=== PATIENT | male | born 1960 | race Caucasian/White ===

== ENCOUNTER 2016-07-06 12:54 | Emergency (ER) | payer MEDICARE, BC, MEDICAID ==
[~2016-07-06] VITALS: Ht 170.2 cm; Wt 54.4 kg
--- OUTSIDE RECORDS SUMMARY | 2016-07-06 13:01 | XMS REPORT | Continuity of Care Document ---
Author Author [facility] Organization [facility] Address Unknown Phone Unavailable Care Team Providers Care Impact Hammer Operator Name Role Phone Unknown, Unknown PCP Unavailable Source Comments Some departments are not documenting in the electronic medical record. If you do not see the information that you expected, contact Release of Information in the Health Information Management department at [phone] for further assistance in locating additional records.[facility] Active Allergies and Adverse Reactions No Known Allergies Current Medications Prescription Sig. Disp. Refills Start End Date Status Date diazepam (VALIUM) 5 mg Take 5 mg by mouth three Active tablet times daily. gabapentin (NEURONTIN) Take 300 mg by mouth Active 300 mg capsule twice daily. oxyCODONE (ROXICODONE) 5 Take 5 mg by mouth every Active mg tablet 4 hours as needed tiZANidine (ZANAFLEX) 4 Take 4 mg by mouth every Active mg tablet 6 hours as needed. naproxen (NAPROSYN) 500 Take 500 mg by mouth Active mg tablet twice daily with meals. trimethoprim-sulfamethoxa Take 1 Tab by mouth Active zole (BACTRIM DS) 160-800 daily. mg tablet Active Problems Problem Noted Date Elevated liver enzymes 06/01/2014 Hepatitis C 06/01/2014 Social History Tobacco Use Types Packs/Day Years Used Date Current Every Day Smoker Cigarettes Tobacco Cessation: Counseling Given: No Comments: 1 pack a cig a day Last Filed Vital Signs Vital Sign Reading Time Taken Blood Pressure 115/80 06/01/2014 10:57 AM TRANSFER STATION OPERATOR Pulse 76 06/01/2014 10:57 AM TRANSFER STATION OPERATOR Temperature 36.3 C (97.4 F) 06/01/2014 10:57 AM TRANSFER STATION OPERATOR Respiratory Rate 16 06/01/2014 10:57 AM TRANSFER STATION OPERATOR Height 1.676 m (5' 6") 06/01/2014 10:57 AM TRANSFER STATION OPERATOR Weight 51.801 kg (114 lb 3.2 oz) 06/01/2014 10:57 AM TRANSFER STATION OPERATOR Body Mass Index 18.44 06/01/2014 10:57 AM TRANSFER STATION OPERATOR Oxygen Saturation 99% 06/01/2014 10:57 AM TRANSFER STATION OPERATOR Plan of Care Health Maintenance Due Date Last Done Comments Physical (Comprehensive) 01/12/1967 Exam Pertussis Vaccine 01/12/1971 Tetanus Vaccine 01/12/1977 Colorectal Cancer 01/12/2010 Screening Influenza Vaccine 02/13/2016 Hepatitis C Screening Completed 06/01/2014 Results from Last 3 Months Not on file
[2016-07-06] MEDS ORDERED: NS 100 ML (IVPB) BAG IV ONE (14:00)
[2016-07-06] MEDS ORDERED: IOHEXOL 350 MG/ML 100 ML (OMNIPAQUE 350) VIAL IV ONE (14:00)
--- NOTE | 2016-07-06 14:29 | ED Abdominal Pain ---
General Chief Complaint: Abdominal/GI Problems Stated Complaint: LOWER ABD PAIN/HERNIA Nursing Triage Note: c/o low abd pain. Visible bilateral inguinal hernias noted but significantly larger on the right. Symptoms have worsened since Wednesday. Sepsis Screen: No Definite Risk Source of Information: Patient Exam Limitations: No Limitations History of Present Illness Time Seen By Provider: 14:27 Initial Comments To ER with bulging to the inguinal area bilaterally for the past 2 days. Slight pain. He is passing gas and having bowel movements without nausea or vomiting. History of a left inguinal hernia repair in [place] several years ago. Timing/Duration: 1-2 Days Severity/Quality: Moderate Radiation: No Radiation Activities at Onset: None Allergies and Home Medications Allergies Coded Allergies: No Allergy Information Available (Unverified , 07/06/16) Review of Systems Constitutional: see HPINo chills EENTM: No Symptoms Reported Respiratory: No Symptoms Reported Cardiovascular: No Symptoms Reported Gastrointestinal: See HPI Abdominal PainDenies Constipated, Denies Diarrhea, Denies Nausea Genitourinary: No Symptoms Reported Musculoskeletal: no symptoms reported Skin: no symptoms reported Psychiatric/Neurological: No Symptoms Reported Endocrine: No Symptoms Reported Hematologic/Lymphatic: No Symptoms Reported Past Szmvquc-Djgtth-Gzldjy Hx Patient Social History Recent Foreign Travel: No Contact w/Someone Who Travel: No Recent Infectious Disease Expo: No Physical Exam Vital Signs VS - Last 72 Hours, by Label 07/06/16 13:42 Temp 97.5 Pulse 70 Resp 16 B/P 134/100 Pulse Ox 98 Capillary Refill : Less Than 3 Seconds General Appearance: WD/WN no apparent distress HEENT: PERRL/EOMI normal ENT inspection Neck: non-tender full range of motion Respiratory: no respiratory distress no accessory muscle use Gastrointestinal: normal bowel sounds soft other (bulging to the bilateral inguinal areas more pronounced when he goes from supine to sitting position. These are not inflamed appearing, easily reducible with simple pressure) Extremities: normal range of motion non-tender Neurologic/Psychiatric: alert normal mood/affect oriented x 3 Skin: normal color warm/dry Progress/Results/Core Measures Results/Orders My Orders Orders-ROBERT SIMMS APRN Iohexol Injection (Omnipaque 350 Mg/Ml 1 (07/06/16 14:00) Ns (Ivpb) (Sodium Chloride 0.9% Ivpb Bag (07/06/16 14:00) Ct Abdomen/Pelvis Wo (07/06/16 13:58) Vital Signs/I&O Vital Sign - Last 12Hours 07/06/16 13:42 Temp 97.5 Pulse 70 Resp 16 B/P 134/100 Pulse Ox 98 Blood Pressure Mean: 111 Departure Impression Impression: Primary Impression: Bilateral inguinal hernia Qualified Code: K40.21 - Bilateral inguinal hernia, without obstruction or gangrene, recurrent Disposition: HOME, SELF-CARE Condition: Stable Departure-Patient Inst. Decision time for Depature: 14:28 Referrals: MAGALI STEVENSON BRETT D DO JENKINS, XAVIER M MD KIDO, TAKAAKI MD NO,LOCAL PHYSICIAN (PCP) Primary Care Physician Patient Instructions: Inguinal and Femoral (Groin) Hernias Add. Discharge Instructions: 1. Return to ER for any vomiting or if you become constipated and stopped passing gas 2. Call a surgeon of your choosing today to make an appointment to be seen as soon as they can get you in preferably within the next 1-3 weeks All discharge instructions reviewed with patient and/or family. Voiced understanding. Work/School Note: Local Medical Staff Listing ROBERT SIMMS APRN Jul 06, 2016 14:29
--- NOTE | 2016-07-06 14:41 | Diagnostic Imaging Report ---
PROCEDURE: CT abdomen and pelvis without contrast. TECHNIQUE: Multiple contiguous axial images were obtained through the abdomen and pelvis without the use of intravenous contrast. INDICATION: Abdominal pain. COMPARISON: There are no prior studies available for comparison. FINDINGS: The images through the low pelvis do show that there are segments of small bowel extending into each inguinal canal. There is no sign of obstruction of the small bowel however. The appendix was not particularly well-visualized but there are no indirect signs of acute appendicitis. There is a considerable amount of fecal material throughout the colon. There may be a few diverticula in the sigmoid colon but there is no evidence for acute diverticulitis. There is no pelvic mass or free fluid collection noted. The urinary bladder and prostate gland are grossly unremarkable. There does appear to be fluid within the scrotum. Most likely this is secondary to a hydrocele. If further evaluation is desired, then scrotal ultrasound would be recommended. The liver, spleen, kidneys, adrenals, gallbladder, aorta and inferior vena cava show no sign of an acute abnormality. The stomach is partially filled with particulate matter and consequently difficult to assess. The images through the lung bases show that there is mild atelectasis/scar formation in the right lower lobe medially. There is no sign of pneumonia or pleural effusion. The bone windows are unremarkable for a fracture or for a destructive lesion. However, there is a grade 1 spondylolisthesis of L5 with respect to S1 as well as narrowing of the disc space at this level. There also appear to be trefoil stenosis at L4-5. IMPRESSION: 1. There are segments of small bowel extending into both inguinal canals. There is no incarceration or obstruction of the bowel however. 2. There is no acute abnormality of the abdomen or pelvis noted otherwise. 3. There is fluid within the scrotum. Most likely, this is due to hydrocele formation. If further imaging is desired, ultrasound would be recommended. 4. There is severe degenerative disc and bony disease in the lower lumbar spine. These results were discussed with Phil Jeff APRN. Dictated by: Dictated on workstation # [id number]
[2016-07-06 14:49] VITALS: BP 138/98
[2016-07-07] MEDS ORDERED: DIAZ5TAB3 (07:13)
[2016-07-07] MEDS ORDERED: NAPR500T3 PO (07:13)
[2016-07-07] MEDS ORDERED: BACL10TA PO (07:13)
[2016-07-07] MEDS ORDERED: GABA-488 (07:13)
[2016-07-07] MEDS ORDERED: HYDR-3812 (07:13)
[2016-07-07] MEDS ORDERED: LEVO750T9 PO (09:21)
[2016-07-07] MEDS ORDERED: OXYC-197 PO (09:21)
[2016-07-07] MEDS ORDERED: ONDA4TAB8 SL (09:21)
== END 2016-07-06 14:49 | disposition home or self-care (01) ==
LOC: EDUNIT# 12:54 → ER 12:58
DX: K40.20 Bilateral inguinal hernia, without obstruction or gangrene, not specified as recurrent (principal)
CPT/HCPCS: 74176

== ENCOUNTER 2016-07-07 06:52 | Emergency (ER) | payer MEDICARE, BC, MEDICAID ==
[~2016-07-07] VITALS: Ht 170.2 cm; Wt 54.4 kg
--- OUTSIDE RECORDS SUMMARY | 2016-07-07 06:58 | XMS REPORT | Continuity of Care Document ---
Author Author [facility] Organization [facility] Address Unknown Phone Unavailable Care Team Providers Care Seat Joiner Chainstitch Name Role Phone Unknown, Unknown PCP Unavailable Source Comments Some departments are not documenting in the electronic medical record. If you do not see the information that you expected, contact Release of Information in the Health Information Management department at [phone] for further assistance in locating additional records.[facility] Active Allergies and Adverse Reactions No [...] Taken Blood Pressure 115/80 06/01/2014 10:57 AM DELIVERY CREW MEMBER Pulse 76 06/01/2014 10:57 AM DELIVERY CREW MEMBER Temperature 36.3 C (97.4 F) 06/01/2014 10:57 AM DELIVERY CREW MEMBER Respiratory Rate 16 06/01/2014 10:57 AM DELIVERY CREW MEMBER Height 1.676 m (5' 6") 06/01/2014 10:57 AM DELIVERY CREW MEMBER Weight 51.801 kg (114 lb 3.2 oz) 06/01/2014 10:57 AM DELIVERY CREW MEMBER Body Mass Index 18.44 06/01/2014 10:57 AM DELIVERY CREW MEMBER Oxygen Saturation 99% 06/01/2014 10:57 AM DELIVERY CREW MEMBER Plan of Care Health Maintenance Due Date Last Done Comments Physical (Comprehensive) 01/12/1967 Exam Pertussis Vaccine 01/12/1971 Tetanus Vaccine 01/12/1977 Colorectal Cancer 01/12/2010 Screening Influenza Vaccine 02/13/2016 Hepatitis C Screening Completed 06/01/2014 Results from Last 3 Months Not on file
[2016-07-07] MEDS ORDERED: NS IV 1000 ML 1,000 ML IV ONE (07:10)
[2016-07-07] MEDS ORDERED: GABA-488 (07:13)
[2016-07-07] MEDS ORDERED: BACL10TA PO (07:13)
[2016-07-07] MEDS ORDERED: NAPR500T3 PO (07:13)
[2016-07-07] MEDS ORDERED: DIAZ5TAB3 (07:13)
[2016-07-07] MEDS ORDERED: fentaNYL INJECTION 100 MCG/2 ML AMP ONE (07:13)
[2016-07-07] MEDS ORDERED: HYDR-3812 (07:13)
[2016-07-07] MEDS ORDERED: FAMOTIDINE 20MG/2ML IV (PEPCID) IVP ONE (07:15)
[2016-07-07] MEDS ORDERED: ONDANSETRON 4 MG/2 ML (SDV) Z0FRAN IVP ONE (07:15)
[2016-07-07 07:24] LABS: BASOPHILS % (AUTO) 0 % (0-10); EOSINOPHILS # (AUTO) 0.2 10^3/uL (0.0-0.3); EOSINOPHILS % (AUTO) 1 % (0-10); LYMPHOCYTES # (AUTO) 1.3 X 10^3 (1.0-4.0); LYMPHOCYTES % (AUTO) 12 % (12-44); MEAN CORPUSCULAR HEMOGLOBIN 29 PG (25-34); MEAN CORPUSCULAR HGB CONC 34 G/DL (32-36); MEAN CORPUSCULAR VOLUME 85 FL (80-99); MEAN PLATELET VOLUME 10.1 FL (7.4-10.4); MONOCYTES # (AUTO) 0.7 X 10^3 (0.0-1.0); MONOCYTES % (AUTO) 6 % (0-12); NEUTROPHILS # (AUTO) 8.7 X 10^3 (1.8-7.8); NEUTROPHILS % (AUTO) 81 % (42-75); PLATELET COUNT 309 10^3/uL (130-400); RED BLOOD COUNT 5.05 10^6/uL (4.35-5.85); RED CELL DISTRIBUTION WIDTH 13.2 % (10.0-14.5); WHITE BLOOD COUNT 10.8 10^3/uL (4.3-11.0)
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
[2016-07-07] MEDS ORDERED: fentaNYL INJECTION 100 MCG/2 ML AMP IVP ONE (07:30)
[2016-07-07 07:44] LABS: ALANINE AMINOTRANSFERASE 30 U/L (0-55); ALBUMIN 3.8 G/DL (3.2-4.5); ANION GAP 9 MMOL/L (5-14); ASPARTATE AMINO TRANSFERASE 25 U/L (5-34); BILIRUBIN,TOTAL 0.3 MG/DL (0.1-1.0); BLOOD UREA NITROGEN 20 MG/DL (7-18); BUN/CREATININE RATIO 28; CALCIUM 8.9 MG/DL (8.5-10.1); CARBON DIOXIDE 26 MMOL/L (21-32); CHLORIDE 105 MMOL/L (98-107); CREATININE SERUM 0.72 MG/DL (0.60-1.30); GFR ESTIMATED > 60; GLUCOSE 86 MG/DL (70-105); LACTATE DEHYDROGENASE 224 U/L (125-220); POTASSIUM 4.2 MMOL/L (3.6-5.0); SODIUM 140 MMOL/L (135-145); TOTAL PROTEIN 6.8 G/DL (6.4-8.2)
--- NOTE | 2016-07-07 09:02 | Diagnostic Imaging Report ---
PA and lateral chest at 845 hours. INDICATION: Vomiting and pneumonia. There are no prior studies available for comparison. FINDINGS: The heart size is within normal limits. There are coarse perihilar markings bilaterally. I suspect that these are chronic in nature. If previous studies are available, they would be helpful for comparison. There is no sign of failure, pneumonia or pleural effusion to suggest an acute abnormality. The mediastinum is not widened. The osseous structures are intact. There has been a prior fusion of the lowermost cervical spine. IMPRESSION: 1. There is chronic pulmonary disease, but there is no acute cardiopulmonary abnormality identified. 2. If previous studies are available, they would be helpful for comparison. Dictated by: Dictated on workstation # [id number]
[2016-07-07] MEDS ORDERED: ONDA4TAB8 SL (09:21)
[2016-07-07] MEDS ORDERED: OXYC-197 PO (09:21)
[2016-07-07] MEDS ORDERED: LEVO750T9 PO (09:21)
[2016-07-07 09:37] VITALS: BP 126/88
== END 2016-07-07 09:37 | disposition home or self-care (01) ==
LOC: EDUNIT# 06:52 → ER 06:54
DX: K40.20 Bilateral inguinal hernia, without obstruction or gangrene, not specified as recurrent (principal); R11.2 Nausea with vomiting, unspecified; R05 Cough; F17.210 Nicotine dependence, cigarettes, uncomplicated; Z79.899 Other long term (current) drug therapy
CPT/HCPCS: 36415; 71020; 80053; 83615; 85025; 96361; 96374; 96375

== ENCOUNTER 2016-07-15 13:05 | Outpatient (CLI) | payer MEDICARE, BC ==
[~2016-07-15] VITALS: Ht 170.2 cm; Wt 51.7 kg
[~2016-07-15 13:05] MED LIST: BACL10TA PO; DIAZ5TAB3; GABA-488; HYDR-3812; LEVO750T9 PO; NAPR500T3 PO; ONDA4TAB8 SL; OXYC-197 PO
--- OUTSIDE RECORDS SUMMARY | 2016-07-15 13:09 | XMS REPORT | Continuity of Care Document ---
Author Author [facility] Organization [facility] Address Unknown Phone Unavailable Care Team Providers Care Casting Machine Operator Helper Name Role Phone Unknown, Unknown PCP Unavailable Source Comments Some departments are not documenting in the electronic medical record. If you do not see the information that you expected, contact Release of Information in the Health Information Management department at [phone] for further assistance in locating additional records.[facility] Active Allergies and Adverse Reactions No [...] Taken Blood Pressure 115/80 06/01/2014 10:57 AM DIET AID Pulse 76 06/01/2014 10:57 AM DIET AID Temperature 36.3 C (97.4 F) 06/01/2014 10:57 AM DIET AID Respiratory Rate 16 06/01/2014 10:57 AM DIET AID Height 1.676 m (5' 6") 06/01/2014 10:57 AM DIET AID Weight 51.801 kg (114 lb 3.2 oz) 06/01/2014 10:57 AM DIET AID Body Mass Index 18.44 06/01/2014 10:57 AM DIET AID Oxygen Saturation 99% 06/01/2014 10:57 AM DIET AID Plan of Care Health Maintenance Due Date Last Done Comments Physical (Comprehensive) 01/12/1967 Exam Pertussis Vaccine 01/12/1971 Tetanus Vaccine 01/12/1977 Colorectal Cancer 01/12/2010 Screening Influenza Vaccine 02/13/2016 Hepatitis C Screening Completed 06/01/2014 Results from Last 3 Months Not on file
[2016-07-15 13:13] VITALS: BP 127/89
[2016-07-15] MEDS ORDERED: TIZA4TAB3 PO (14:00)
[2016-07-15] MEDS ORDERED: OXYC-471 PO (14:00)
[2016-07-20] MEDS ORDERED: OXYC-471 PO (10:52)
== END 2016-07-15 13:35 | disposition home or self-care (01) ==
LOC: PREOP 13:05
PROVIDERS: ATTEND Surgery
DX: Z01.810 Encounter for preprocedural cardiovascular examination (principal); Z11.2 Encounter for screening for other bacterial diseases; K40.20 Bilateral inguinal hernia, without obstruction or gangrene, not specified as recurrent
CPT/HCPCS: 87081; 93005

== ENCOUNTER 2016-07-20 07:20 | Day surgery (SDC) | payer MEDICARE, BC ==
[~2016-07-20] VITALS: Ht 170.2 cm; Wt 51.7 kg
[2016-07-20 07:20] VITALS: BP 109/88
[~2016-07-20 07:20] MED LIST changes: +OXYC-471 PO; +TIZA4TAB3 PO
[2016-07-20] MEDS ORDERED: FAMOTIDINE 20MG/2ML IV (PEPCID) IV ONE (07:45)
[2016-07-20] MEDS: LACTATED RINGERS 1,000 ML IV PRN ×2 (08:08→10:23)
--- OUTSIDE RECORDS SUMMARY | 2016-07-20 08:08 | XMS REPORT | Continuity of Care Document ---
Author Author [facility] Organization [facility] Address Unknown Phone Unavailable Care Team Providers Care Checking Clerk Name Role Phone Unknown, Unknown PCP Unavailable Source Comments Some departments are not documenting in the electronic medical record. If you do not see the information that you expected, contact Release of Information in the Health Information Management department at [phone] for further assistance in locating additional records.[facility] Active Allergies and Adverse Reactions No [...] Taken Blood Pressure 115/80 06/01/2014 10:57 AM HAND BOOKED FOLDER AND STITCHER Pulse 76 06/01/2014 10:57 AM HAND BOOKED FOLDER AND STITCHER Temperature 36.3 C (97.4 F) 06/01/2014 10:57 AM HAND BOOKED FOLDER AND STITCHER Respiratory Rate 16 06/01/2014 10:57 AM HAND BOOKED FOLDER AND STITCHER Height 1.676 m (5' 6") 06/01/2014 10:57 AM HAND BOOKED FOLDER AND STITCHER Weight 51.801 kg (114 lb 3.2 oz) 06/01/2014 10:57 AM HAND BOOKED FOLDER AND STITCHER Body Mass Index 18.44 06/01/2014 10:57 AM HAND BOOKED FOLDER AND STITCHER Oxygen Saturation 99% 06/01/2014 10:57 AM HAND BOOKED FOLDER AND STITCHER Plan of Care Health Maintenance Due Date Last Done Comments Physical (Comprehensive) 01/12/1967 Exam Pertussis Vaccine 01/12/1971 Tetanus Vaccine 01/12/1977 Colorectal Cancer 01/12/2010 Screening Influenza Vaccine 02/13/2016 Hepatitis C Screening Completed 06/01/2014 Results from Last 3 Months Not on file
--- OUTSIDE RECORDS SUMMARY | 2016-07-20 08:08 | XMS REPORT | Continuity of Care Document ---
Author Author [facility] Organization [facility] Address Unknown Phone Unavailable Care Team Providers Care Gang Plank Workman Name Role Phone Unknown, Unknown PCP Unavailable Source Comments Some departments are not documenting in the electronic medical record. If you do not see the information that you expected, contact Release of Information in the Health Information Management department at [phone] for further assistance in locating additional records.[facility] Active Allergies and Adverse Reactions No [...] Taken Blood Pressure 115/80 06/01/2014 10:57 AM ROOM SERVICE SERVER Pulse 76 06/01/2014 10:57 AM ROOM SERVICE SERVER Temperature 36.3 C (97.4 F) 06/01/2014 10:57 AM ROOM SERVICE SERVER Respiratory Rate 16 06/01/2014 10:57 AM ROOM SERVICE SERVER Height 1.676 m (5' 6") 06/01/2014 10:57 AM ROOM SERVICE SERVER Weight 51.801 kg (114 lb 3.2 oz) 06/01/2014 10:57 AM ROOM SERVICE SERVER Body Mass Index 18.44 06/01/2014 10:57 AM ROOM SERVICE SERVER Oxygen Saturation 99% 06/01/2014 10:57 AM ROOM SERVICE SERVER Plan of Care Health Maintenance Due Date Last Done Comments Physical (Comprehensive) 01/12/1967 Exam Pertussis Vaccine 01/12/1971 Tetanus Vaccine 01/12/1977 Colorectal Cancer 01/12/2010 Screening Influenza Vaccine 02/13/2016 Hepatitis C Screening Completed 06/01/2014 Results from Last 3 Months Not on file
[2016-07-20] MEDS ORDERED: LIDOCAINE/EPI 1%-1:100,000 (XYLOCAINE) 20ML ONE ×2 (08:12→10:03)
[2016-07-20] MEDS ORDERED: MIDAZOLAM 2 MG/2 ML (VERSED) VIAL ONE (08:13)
[2016-07-20] MEDS ORDERED: ONDANSETRON 4 MG/2 ML (SDV) Z0FRAN ONE (08:13)
[2016-07-20] MEDS ORDERED: fentaNYL INJECTION 100 MCG/2 ML AMP ONE (08:13)
[2016-07-20] MEDS ORDERED: LACTATED RINGERS 1,000 ML IV ONE ×2 (08:13→11:05)
[2016-07-20] MEDS ORDERED: SEVOFLURANE (ULTANE) 15 ML INHAL SOLN ONE ×4 (08:13→11:05)
[2016-07-20] MEDS ORDERED: proPOfol 200 MG/20 ML (DIPRIVAN) VIAL IV ONE (08:13)
[2016-07-20] MEDS ORDERED: DEXAMETHASONE PF 10 MG/ML (DECADRON) VIAL ONE (08:13)
[2016-07-20] MEDS ORDERED: LIDOCAINE PF 2% 10 ML (XYLOCAINE) AMP ONE (08:13)
[2016-07-20] MEDS ORDERED: GABA-488 PO (08:23)
[2016-07-20] MEDS ORDERED: ceFAZolin 1 GM/NS 50 ML IVPB IV ONE ×2 (08:30)
--- NOTE | 2016-07-20 09:43 | Progress Note-Pre Operative ---
Pre-Operative Progress Note H&P Reviewed The H&P was reviewed, patient examined and no changes noted. Date H&P Reviewed: Jul 20, 2016 Time H&P Reviewed: 09:42 Pre-Operative Diagnosis: B/L inguinal hernia MAGALI STEVENSON DO Jul 20, 2016 09:43
--- NOTE | 2016-07-20 10:51 | Progress Note-Post Operative ---
Post-Operative Progess Note Outdoor Advertising Leasing Agent Robert Pre-Operative Diagnosis B/L inguinal hernia Post-Operative Diagnosis Right Inguinal hernia -Direct Left inguinal hernia - direct , recurrent Post-Op Procedure Note Date of Procedure: Jul 20, 2016 Name of Procedure: B/L IH with mesh placement Anesthesia Type GET Estimated blood loss (mL): scant Specimen(s) collected None MAGALI STEVENSON DO Jul 20, 2016 10:51
[2016-07-20] MEDS ORDERED: OXYC-471 PO (10:52)
--- NOTE | 2016-07-20 10:55 | Discharge Inst-Surgical ---
Discharge Inst-Surgical Depart Medication/Instructions New, Converted or Re-Newed RX: RX Given to Pt/Family Patient Instructions Follow up Appt: Make appointment for 1 week. Call [phone] Instructions: No lifting greater than 10 pounds. No strenuous activity. May shower in 24 hours, no tub bath or soaking. Use incentive spirometer at home as directed. No Smoking Skin/Wound Care: May remove band-aid in am, glue should fall off in 7-10 days Symptoms to Report: Appetite Changes, Extremity Discoloration, Numbness/Tingling, Swelling Increased , Bleeding Excessive, Eyesight Changes, Pain Increased, Urine Color Change, Constipation(Persistent), Fever over 101 degree F, Pain/Pressure in chest, Urinating Difficulty, Cough Up/Vomit Blood, Heart Beat Irreg/Pounding, Pain/ Pressure in jaw, Vaginal Bleeding Increase, Cramps in feet or legs, Lightheadedness, Pain/Pressure in shoulder, Diarrhea(Persistent), Memory Changes Suddenly, Questions/Concerns, Weight gain consecutive days, Dizziness/ Fainting, Nausea/Vomiting, Shortness of Breath, Weight gain over 2 pounds If questions or concerns contact your physician Or seek help at emergency department. Activity Activity as Tolerated: Yes Driving Instructions: No Driving/Refer to Dr. Jennings Discharge Diet: No Restrictions Diet After 24 Hours: Clear Liquid if Nauseous, Resume Home Diet If Any Problems/Questions/Issu: Contact Your Physician, Go to Emergency Room Skin/Wound Care Infection Signs and Symptoms: Increased Redness, Increased Drainage, Increased Swelling Bathing Instructions: Shower Stitches/[place]/Dermabond Dis: Dermabond Ice Pack: Ice On and Off Site MAGALI STEVENSON DO Jul 20, 2016 10:55
[2016-07-20] MEDS ORDERED: morphine INJ 10 MG/ML 1ML (SYR OR VIAL) IVP PRN (11:15)
[2016-07-20] MEDS ORDERED: HYDROmorphone (DILAUDID) 2 MG/ML VIAL IVP PRN (11:15)
[2016-07-20] MEDS ORDERED: MEPERIDINE (DEMEROL) INJ 50 MG/ML IVP PRN (11:15)
[2016-07-20] MEDS ORDERED: ONDANSETRON 4 MG/2 ML (SDV) Z0FRAN IVP PRN (11:15)
[2016-07-20 11:50] VITALS: BP 107/92
[2016-07-20] MEDS ORDERED: oxyCODONE/APAP 5/325MG (PERCOCET 5) TABLET PO PRN (12:15)
[2016-07-20 12:20] VITALS: BP 126/82
[2016-07-20 12:50] VITALS: BP 129/91
[2016-07-20 13:15] VITALS: BP 129/91
--- NOTE | 2016-07-21 12:38 | OPERATIVE REPORT ---
PROCEDURE PHYSICIAN: MAGALI STEVENSON DATE OF PROCEDURE: 07/20/2016 PREOPERATIVE DIAGNOSIS: Bilateral inguinal hernia. POSTOPERATIVE DIAGNOSIS: 1. Right direct inguinal hernia. 2. Left recurrent direct inguinal hernia. PROCEDURE: Bilateral inguinal herniorrhaphy with mesh placement. SURGEON: Dr. Stevenson FIBREGLASS LAY UP WORKER: Dr. Jones. ANESTHESIA: General endotracheal tube by Dr. Santoyo with approximately 50 mL of local injected by myself. SPECIMEN: None BLOOD LOSS: Scant. FLUIDS: Per anesthesia. POSTOPERATIVE CONDITION: Stable. INDICATION FOR THE PROCEDURE: The patient is a 56-year-old male who came in complaining of bulging and pain bilateral inguinal region. He was diagnosed with bilateral inguinal hernia. FINDINGS: The patient had a large direct right inguinal hernia and then he large actually left large recurrent direct inguinal hernia. PROCEDURE NOTE: After informed consent was obtained patient brought to the operating room, placed on the table in supine position. He was sterilely prepped and draped in the normal fashion. Local lidocaine was then used to perform an iliac-inguinal nerve block bilaterally as well as pubic tubercle block and infiltrated the right and left inguinal region with local; then started on the right side. Made an incision with number 15 blade, carried down through skin and subcutaneous tissue then deepened down to the subcutaneous with [place] electrocautery down to the fascia at the external oblique, infiltrated the fascia with local and incised the external oblique with Bovie electrocautery. Then able to grasp two sides of the hemostats and dissect under that, actually fascia bluntly. Then able to grasp the cord and cord structures with a [place] to get under them at the pubic tubercle, placed a [place] drain pulled this out inferolateral direction. Then started carefully freeing up the cord and cord structures. There was a large direct hernia sac attached to the cord. Able to carefully peel this off and then pushed this down and closed the floor of the inguinal canal with a 2-0 Vicryl, 2 [id number] sutures were used to close the canal. Then I elected to place a right-sided Parietex mesh, in the inguinal canal, sutured once at the pubic tubercle and then placed the rest of the mesh up under the external oblique fascia encircling the cord with the precut hole there creating an internal inguinal ring. Copiously irrigated with normal saline, suctioned this out and then elected to close the external oblique fascia with 3-0 Vicryl running suture thereby recreating the external inguinal ring. Closed Radha's fascia with 3-0 Vicryl interrupted sutures and then Dr. Jones closed the skin with 4-0 undyed Monocryl. I went to the other side and started the incision on the left side. Made an incision with a number 15 blade, carried down through the skin into the subcutaneous tissue. Had already infiltrated this area with local. Then deepened down through the subcutaneous tissue with the Bovie electrocautery down to the fascia. He had had a previous left inguinal hernia, so this area was very hard and stuck down. Able to get down to the external oblique fascia then infiltrated with local and then incised through the external inguinal ring with Bovie electrocautery and then grasped the sides and then started carefully dissecting out the cord and cord structures. Was able to grab the cord and cord structures with a Abdirahman and then get under them at the pubic tubercle and then found mesh, old mesh, was actually stuck on the medial aspect of the external oblique fascia. Was able to carefully dissect this off the fascia and then noted he had another large direct inguinal hernia. Elected to close the floor of the inguinal canal with 2-0 Vicryl, 2 interrupted [id number] suture used to close the floor of the inguinal canal. Then instead of trying to remove the mesh elected to tack this back down into the correct position tacking to the pubic tubercle right at the point of the pubic tubercle and then to the sides with 2-0 Vicryl; along the shelving portion of Poupart's ligament laterally with 2-0 Vicryl as well as going medially along the aponeurosis of the transverse abdominis to tack this mesh down. It laid out nicely and it was in good position. At this point then closed the external oblique fascia with 3-0 Vicryl running sutures thereby recreating the external inguinal ring. There was no indirect defect and the mesh was in good position around the cord and cord structures. Then closed the Radha's fascia with 3-0 Vicryl; 2 interrupted stitches. Then closed the skin with 4-0 undyed Monocryl in a running subcuticular fashion. The areas were cleaned and dried, glue was used on both side and then Band-Aids placed. The patient tolerated the procedure and transferred to recovery room in stable condition. Sponge and needle count correct the end of the case. Dr. Jones dental hygiene administrative assistant in this case and needed his help for retraction, identification of anatomy and he helped close. Job ID: [id number] Dictated Date: 07/20/2016 11:18:08 Web User Experience Strategist Date: 07/21/2016 12:03:04 / maikol HURD
== END 2016-07-20 13:15 | disposition home or self-care (01) ==
LOC: SDC 07:20
PROVIDERS: ATTEND Surgery
DX: K40.91 Unilateral inguinal hernia, without obstruction or gangrene, recurrent (principal); K40.90 Unilateral inguinal hernia, without obstruction or gangrene, not specified as recurrent

== ENCOUNTER 2018-08-11 14:59 | Emergency (ER) | payer MEDICARE, BC ==
[~2018-08-11] VITALS: Ht 165.1 cm; Wt 59.0 kg
[~2018-08-11 14:59] MED LIST changes: +ACHD5005; +GABA-488 PO; -HYDR-3812; +NAPR-915 PO; -NAPR500T3 PO; -OXYC-197 PO; +OXYC1TAB87 PO
--- NOTE | 2018-08-11 15:32 | ED EENT ---
History of Present Illness General Stated Complaint: RT EAR PAIN History of Present Illness Date Seen by Provider: Aug 11, 2018 Time Seen by Provider: 15:25 Initial Comments 58-year-old white male who presents with right ear pressure for 3 days. He is having trouble hearing out of that ear as well. He is notes some tendency to talk louder because of this. He tried earwax candle twice without any improvement. He would like his evaluation treatment limited to this problem today. Allergies and Home Medications Allergies Coded Allergies: No Known Drug Allergies (Unverified , 07/15/16) Home Medications Baclofen 10 Mg Tablet, 10 MG PO TID PRN for MUSCLE SPASMS, (Reported) Gabapentin 300 Mg Capsule, 300 MG PO BID Prescribed by: RENUKA THRASHER on 07/20/16 0823 Naproxen 500 Mg Tablet, 500 MG PO BID WITH MEALS, (Reported) Oxycodone HCl/Acetaminophen 1 Each Tablet, 1 EACH PO Q6H PRN for PAIN Prescribed by: MAGALI STEVENSON on 07/20/16 1052 Tizanidine HCl 4 Mg Tablet, 4 MG PO TID PRN for MUSCLE CRAMPS, (Reported) Patient Home Medication List Home Medication List Reviewed: Yes Review of Systems Review of Systems Constitutional: no symptoms reported Eyes: No Symptoms Reported Ears: See HPI Nose: no symptoms reported Mouth: no symptoms reported Throat: no symptoms reported Respiratory: no symptoms reported Cardiovascular: no symptoms reported Gastrointestinal: no symptoms reported Musculoskeletal: no symptoms reported (acutely) Skin: no symptoms reported Neurological: No Symptoms Reported Hematologic/Lymphatic: No Symptoms Reported Immunological/Allergic: no symptoms reported Past Bdzepwm-Wdhtoc-Qnizik Hx Past Med/Social Hx: Reviewed Nursing Past Med/Soc Hx Patient Social History Type Used: Cigarettes Recent Foreign Travel: No Contact w/Someone Who Travel: No Recent Hopitalizations: No Seasonal Allergies Seasonal Allergies: No Past Medical History Irregular Heartbeat Reproductive Disorders: No Gastroesophageal Reflux, Hiatal Hernia Arthritis, Back Injury, Chronic Back Pain Physical Exam Height, Weight, BMI Height: 5'7.00" Weight: 114lbs. 0.0oz. 51.098040ad; 17.9 BMI Method:Stated General Appearance: WD/WN, no apparent distress, thin Eyes: bilateral eye normal inspection, bilateral eye PERRL, bilateral eye EOMI Ears: right ear other (canal occluded with cerumen packed against TM) Nose: normal inspection Mouth/Throat: normal mouth inspection, other (multiple missing teeth) Neck: non-tender, full range of motion, supple, normal inspection Cardiovascular: regular rate, rhythm Respiratory: chest non-tender, decreased breath sounds Gastrointestinal: normal bowel sounds, non tender Neurologic/Psychiatric: alert, normal mood/affect, oriented x 3 Skin: normal color, warm/dry Procedures/Interventions Ear : Ear Location: Right Foreign Body Removal: Impacted Cerumen Use of: Ear Curette, Irrigation Progress/Conclusion Large volumes of warm water with directed irrigation were unsuccessful in completely removing the lesion. The ear curet was utilized however the impaction was located very close to his TM. The impaction was partially removed but a substantial amount remained firmly impacted. We discussed use of outpatient ear wax softeners and the need for outpatient follow-up. Patient understands and agrees with plan. Departure Impression Primary Impression: Cerumen impaction Qualified Codes: H61.21 - Impacted cerumen, right ear Disposition: 01 HOME, SELF-CARE Condition: Improved Departure-Patient Inst. Decision time for Depature: 16:21 Referrals: CJ GERMAIN MD (PCP) Primary Care Physician in 3-4 days, sooner as needed. Patient Instructions: Ear Wax Impaction (DC) Add. Discharge Instructions: Use Debrox or a generic version twice a day until you see your doctor and he may be able to remove the wax if the home irrigation doesn't get it all out. CURTIS LINN MD Aug 11, 2018 15:32
[2018-08-11 16:32] VITALS: BP 132/71
== END 2018-08-11 16:35 | disposition home or self-care (01) ==
LOC: EDUNIT# 14:59 → ER FS 15:02
DX: H61.21 Impacted cerumen, right ear (principal); K21.9 Gastro-esophageal reflux disease without esophagitis; Z87.19 Personal history of other diseases of the digestive system
CPT/HCPCS: 69210

== ENCOUNTER 2018-08-16 09:47 | Emergency (ER) | payer MEDICARE, BC ==
[~2018-08-16] VITALS: Ht 167.6 cm; Wt 63.5 kg
--- OUTSIDE RECORDS SUMMARY | 2018-08-16 09:53 | XMS REPORT | Clinical Summary ---
Author Author [facility] Organization [facility] Address Unknown Phone Unavailable Care Team Providers Care It Infrastructure Consultant Name Role Phone Peter Foote MD Unavailable Unknown, Unknown PCP Unavailable Source Comments Some departments are not documenting in the electronic medical record. If you do not see the information that you expected, contact Release of Information in the Health Information Management department at [phone] for further assistance in locating additional records.[facility] Allergies No Known Allergies Medications End Date Status Medication Sig Dispensed Refills Start Date Active oxyCODONE (ROXICODONE, Take 1 tablet 90 tablet 0 OXY-IR) 5 mg tablet by mouth 8 every 8 hours as needed for Pain Active oxyCODONE (ROXICODONE, Take one 30 tablet 0 OXY-IR) 5 mg tablet tablet by 8 mouth daily as needed Active oxyCODONE (ROXICODONE, Take one 30 tablet 0 OXY-IR) 5 mg tablet tablet by 9 mouth daily as needed for Pain Earliest Fill Date: 09/29/18 Active gabapentin (NEURONTIN) TAKE 2 540 tablet 1 600 mg tablet TABLETS BY 9 MOUTH EVERY 8 HOURS Active baclofen (LIORESAL) 10 mg TAKE 1 TABLET 180 tablet 0 tablet BY MOUTH 9 TWICE DAILY Active diazePAM (VALIUM) 5 mg Take one 60 tablet 2 tablet tablet by 9 mouth twice daily as needed for Anxiety. 08/26/2018 Active traMADol (ULTRAM) 50 mg Take one 30 tablet 1 tablet tablet by 9 mouth twice daily as needed for Pain for up to 30 days. 07/27/2018 Discontinued gabapentin (NEURONTIN) Take 2 180 capsule 3 600 mg tablet tablets by 8 mouth every 8 hours. 07/27/2018 Discontinued tiZANidine (ZANAFLEX) 4 Take 1 tablet 60 tablet 4 mg tablet by mouth 8 twice daily. 07/27/2018 Discontinued baclofen (LIORESAL) 10 mg TAKE 1 TABLET 60 tablet 2 tablet BY MOUTH 8 TWICE DAILY 07/26/2018 Discontinued oxyCODONE (ROXICODONE, Take one 30 tablet 0 OXY-IR) 5 mg tablet tablet by 9 mouth daily as needed for Pain Earliest Fill Date: 06/30/18 07/27/2018 Discontinued diazePAM (VALIUM) 5 mg Take one 60 tablet 2 tablet tablet by 8 mouth twice daily as needed for Anxiety. 07/27/2018 Discontinued traMADol (ULTRAM) 50 mg Take one 30 tablet 0 tablet tablet by 9 mouth twice daily as needed for Pain. Active Problems Problem Noted Date Elevated liver enzymes 06/01/2014 Hepatitis C 06/01/2014 Encounters Care Team Description Date Type Specialty Eloy Hayes MD 07/27/2018 Refill Anesthesia Pain Eloy Hayes MD Myalgia, other site (Primary Dx); Degeneration of cervical intervertebral disc; Cervical radicular pain; Chronic pain of right knee 07/26/2018 Office Visit Anesthesia Pain Antolin Ortiz MD 07/07/2018 Documentation Sports Medicine Antolin Ortiz MD Bilateral foot-drop (Primary Dx) 07/07/2018 Orders Only Sports Medicine Eloy Hayes MD Myalgia, other site (Primary Dx) 07/06/2018 Office Visit Anesthesia Pain Eloy Hayes MD Pain 06/28/2018 Telephone Anesthesia Pain Antolin Ortiz MD Chondromalacia patellae of right knee (Primary Dx); Right knee pain, unspecified chronicity 06/27/2018 Office Visit Sports Medicine Eloy Hayes MD Fall 06/08/2018 Telephone Anesthesia Pain Eloy Hayes MD 05/31/2018 Hospital Radiology Encounter Eloy Hayes MD Degeneration of cervical intervertebral disc (Primary Dx); Cervical radicular pain; Lumbar radicular pain 05/31/2018 Office Visit Anesthesia Pain from Last 3 Months Social History Date Tobacco Use Types Packs/Day Years Used Former Smoker Cigarettes 0.5 Smokeless Tobacco: Never Used Tobacco Cessation: Counseling Given: No Comments: 1 pack a cig over two days Alcohol Use Drinks/Week oz/Week Comments No Sex Assigned at Date Recorded Not on file Industry Job Start Date Occupation Not on file Not on file Not on file Travel End Travel History Travel Start No recent travel history available. Last Filed Vital Signs Time Taken Vital Sign Reading 07/26/2018 12:09 PM SOLUTION DESIGN ENGINEER Blood Pressure 121/76 07/26/2018 12:09 PM SOLUTION DESIGN ENGINEER Pulse 76 12/21/2017 2:29 PM CDT Temperature 36.7 C (98 F) 06/27/2018 9:23 AM SOLUTION DESIGN ENGINEER Respiratory Rate 15 06/27/2018 9:23 AM SOLUTION DESIGN ENGINEER Oxygen Saturation 98% - Inhaled Oxygen - Concentration 07/26/2018 12:09 PM SOLUTION DESIGN ENGINEER Weight 61.2 kg (135 lb) 07/26/2018 12:09 PM SOLUTION DESIGN ENGINEER Height 167.6 cm (5' 6") 07/26/2018 12:09 PM SOLUTION DESIGN ENGINEER Body Mass Index 21.79 Plan of Treatment Health Maintenance Due Date Last Done Comments PHYSICAL (COMPREHENSIVE) 01/12/1967 EXAM HIV SCREENING 01/12/1975 DTAP/TDAP VACCINES (1 - 01/12/1978 Tdap) COLORECTAL CANCER 01/12/2010 SCREENING SHINGLES RECOMBINANT 01/12/2010 VACCINE (1 of 2) INFLUENZA VACCINE 01/12/2019 HEPATITIS C SCREENING Completed 06/01/2014 Procedures Comments Procedure Name Priority Date/Time Associated Diagnosis PA INJECTION SINGLE/FLOATING DERRICK OPERATOR Routine 07/06/2018 Myalgia, other site TRIGGER POINT 3/> MUSCLES 8:30 AM SOLUTION DESIGN ENGINEER PA ARTHROCENTESIS Routine 06/27/2018 Chondromalacia patellae ASPIR&/INJ MAJOR JT/BURSA 9:30 AM SOLUTION DESIGN ENGINEER of right knee W/O US KNEE 3 VIEWS RIGHT Routine 05/31/2018 Degeneration of cervical 3:45 PM SOLUTION DESIGN ENGINEER intervertebral disc Cervical radicular pain Lumbar radicular pain from Last 3 Months Results * Trigger Point (07/06/2018 8:30 AM SOLUTION DESIGN ENGINEER) Narrative Performed At Eloy Hayes MD 07/06/20189:59 AM OTHER OUTSIDE LAB Trigger Point Locations: R cervical/thoracic/lumbar paraspinal, R lumbar and R sacral Consent: Consent obtained: verbal and written Consent given by: patient Alternatives discussed: alternative treatment [employer] Protocol: Relevant documents: relevant documents present and verified Test results: test results available and properly labeled Imaging studies: imaging studies available Required items: required blood products, implants, devices, and special equipment available Site marked: the operative site was marked Patient identity confirmed: Patient identify confirmed verbally with patient. Time out: Immediately prior to procedure a "time out" was called to verify the correct patient, procedure, equipment, clinical support nurse and site/side marked as required Procedures Details: Prep: alcohol Needle size: 27 G Number of muscles: 3 or more Approach: posterior Medications administered: 2 mL bupivacaine PF 0.25 %; 40 mg triamcinolone acetonide 40 mg/mL Patient tolerance: Patient tolerated the procedure well with no immediate complications. Pressure was applied, and hemostasis was accomplished. Performing Organization Address City/State/Bringrs Phone Number OTHER OUTSIDE LAB * Large Joint Drain/Inject (06/27/2018 9:30 AM SOLUTION DESIGN ENGINEER) Narrative Performed At Antolin Ortiz MD 06/27/20184:54 PM OTHER OUTSIDE LAB Large Joint Drain/Inject Location: knee R knee Consent: Consent obtained: verbal Consent given by: patient Risks discussed: infection, nerve damage, pain, skin discoloration and soft tissue reaction Alternatives discussed: alternative treatment Discussed with patient the purpose of the treatment/procedure, other ways of treating my condition, including no treatment/ procedure and the risks and benefits of the alternatives. Patient has decided to proceed with treatment/procedure. [employer] Protocol: Relevant documents: relevant documents present and verified Test results: test results available and properly labeled Imaging studies: imaging studies available Required items: required blood products, implants, devices, and special equipment available Site marked: the operative site was marked Patient identity confirmed: Patient identify confirmed verbally with patient. Time out: Immediately prior to procedure a "time out" was called to verify the correct patient, procedure, equipment, clinical support nurse and site/side marked as required Procedures Details: Indications: pain Prep: povidone-iodine Local anesthetic: ethyl chloride spray Needle size: 22 G Approach: lateral and superior Medications administered: 4 mL ropivacaine (PF) 0.5% (5 mg/mL); 40 mg triamcinolone acetonide 40 mg/mL Patient tolerance: Patient tolerated the procedure well with no immediate complications. Pressure was applied, and hemostasis was accomplished. Performing Organization Address City/State/[place] Phone Number OTHER OUTSIDE LAB * KNEE 3 VIEWS RIGHT (05/31/2018 3:45 PM SOLUTION DESIGN ENGINEER) Impressions Performed At Findings/Impression: [facility] RESULTS 1.Right knee: Transverse oriented screw fixation within the proximal tibial epiphysis. Staple fixation along the medial aspect of the proximal tibia. There is some chondrocalcinosis primarily the lateral joint compartment. Likely intra-articular ossicle within the lateral knee joint space and possible 2 tiny intra-articular ossicles within the medial portion of the lateral joint compartment. There is an ossicle overlying the intercondylar eminence. 2 osteophytes or ossicles adjacent to the proximal tip of the fibular head. Mild irregular roughening of the lateral tibial plateau. Estimated mild osteoarthritis of the lateral joint compartment. Small sessile bony protuberance medial aspect of the fibular neck and medial aspect junction proximal one third of the tibia partially clipped incompletely evaluated. This may reflect sequela to previous old trauma. Medial joint space and patellofemoral articulation unremarkable. No joint effusion. 2.Left knee 2 views: Normal 2 views left knee. Normal alignment. Joint spaces maintained. Finalized by Vern Chacon M.D. on 05/31/2018 4:16 PM. Dictated by Vern Chacon M.D. on 05/31/2018 4:11 PM. Narrative Performed At KNEE 3 VIEWS RIGHT [facility] RESULTS Clinical Indication: pain.Right knee pain Comparison: None Procedure Note Interface, Radiant Results - 05/31/2018 4:19 PM SOLUTION DESIGN ENGINEER KNEE 3 VIEWS RIGHT Clinical Indication: pain.Right knee pain Comparison: None IMPRESSION Findings/Impression: 1. Right knee: Transverse oriented screw fixation within the proximal tibial epiphysis. Staple fixation along the medial aspect of the proximal tibia. There is some chondrocalcinosis primarily the lateral joint compartment. Likely intra- articular ossicle within the lateral knee joint space and possible 2 tiny intra- articular ossicles within the medial portion of the lateral joint compartment. There is an ossicle overlying the intercondylar eminence. 2 osteophytes or ossicles adjacent to the proximal tip of the fibular head. Mild irregular roughening of the lateral tibial plateau. Estimated mild osteoarthritis of the lateral joint compartment. Small sessile bony protuberance medial aspect of the fibular neck and medial aspect junction proximal one third of the tibia partially clipped incompletely evaluated. This may reflect sequela to previous old trauma. Medial joint space and patellofemoral articulation unremarkable. No joint effusion. 2. Left knee 2 views: Normal 2 views left knee. Normal alignment. Joint spaces maintained. Finalized by Vern Chacon M.D. on 05/31/2018 4:16 PM. Dictated by Vern Chacon M.D. on 05/31/2018 4:11 PM. Performing Organization Address City/State/Zipcode Phone Number [facility] RESULTS from Last 3 Months Insurance Payer Benefit Subscriber ID Type Phone Address Plan / Group MEDICARE MEDICARE xxxxxxxxxx Medicare PART A AND B BCBS [place] BCBS xxxxxxxxxxxx Medicare SUPPLEMENT Advance Directives Patient has advance care planning documents on file. For more information, please contact: [facility] [address] [place] [address]
--- OUTSIDE RECORDS SUMMARY | 2018-08-16 09:53 | XMS REPORT | Encounter Summary ---
Author Author [facility] Organization [facility] Address Unknown Phone Unavailable Care Team Providers Care Cotton Tipper Name Role Phone Peter Foote MD Unavailable Unknown, Unknown PCP Unavailable Reason for Visit * Reason Comments Medication Refill Encounter Details Care Team Description Date Type Department Eloy Hayes MD [address] [place], [place] [id number] 07/27/2018 Refill [facility] [address] [facility] [address] [place] [address] Social History Date Tobacco Use Types Packs/Day Years Used Former Smoker Cigarettes 0.5 Smokeless Tobacco: Never Used Comments: 1 pack a cig over two days Alcohol Use Drinks/Week oz/Week Comments No Sex Assigned at Date Recorded Not on file Industry Job Start Date Occupation Not on file Not on file Not on file Travel End Travel History Travel Start No recent travel history available. as of this encounter Functional Status Date of Assessment Functional Status Response 07/26/2018 Does the patient have a hearing impairment: No 07/26/2018 Does the patient have a visual impairment: Yes 07/06/2018 Does the patient have impaired ambulation: Yes 07/26/2018 Does the patient have an activity of daily living No (ADL) impairment: 07/26/2018 Does the patient have an instrumental activity of No daily living (IADL) impairment: Date of Assessment Cognitive Status Response 07/26/2018 Does the patient have a cognitive impairment: No as of this encounter Miscellaneous Notes * Addendum Note - Zari Cuello RN - 07/27/2018 4:29 PM VEHICLE MAINTENANCE TECHNICIAN Addended by: ZARI CUELLO on: 07/27/2018 04:29 PM Modules accepted: Orders CLE MAINTENANCE TECHNICIAN * Telephone Encounter - Zari Cuello RN - 07/27/2018 4:23 PM VEHICLE MAINTENANCE TECHNICIAN Pt called asking for refills of Gabapentin / Valium and baclofen. [facility] [place] called. No history of gabapentin dispense. Review of [facility] reveals pt fills Valium/tramadol/oxycodone/baclofen at [facility] in [place]. Unable to verify gabapentin dosage, unable to reach pt to verify, will try again tomorrow. CLE MAINTENANCE TECHNICIAN in this encounter Plan of Treatment Not on fileas of this encounter Visit Diagnoses Not on filein this encounter
--- OUTSIDE RECORDS SUMMARY | 2018-08-16 09:53 | XMS REPORT | Encounter Summary ---
Author Author [facility] Organization [facility] Address Unknown Phone Unavailable Care Team Providers Care Pattern Keeper Name Role Phone Peter Foote MD Unavailable Unknown, Unknown Md PCP Unavailable Reason for Referral * Pain Authorization (Routine) Referred By Contact Referred To Contact Status Reason Specialty Diagnoses / Procedures Eloy Hayes MD [address] [facility] [place] [address] New Request Diagnoses Myalgia, other site Degeneration of cervical intervertebral disc Cervical radicular pain Chronic pain of right knee P rocedures [facility] TRIGGER POINT INJECTION Reason for Visit * Reason Comments Follow Up 2 month follow up Pain Pain Encounter Details Care Team Description Date Type Department Eloy Hayes MD [address] [place], [place] [id number] Myalgia, other site (Primary Dx); Degeneration of cervical intervertebral disc; Cervical radicular pain; Chronic pain of right knee 07/26/2018 Office Visit [facility] [address] [facility] [address] [place] [address] Social History Date Tobacco Use Types Packs/Day [...] travel history available. as of this encounter Last Filed Vital Signs Time Taken Vital Sign Reading 07/26/2018 12:09 PM STRATEGY EXECUTION CONSULTANT Blood Pressure 121/76 07/26/2018 12:09 PM STRATEGY EXECUTION CONSULTANT Pulse 76 - Temperature - - Respiratory Rate - - Oxygen Saturation - - Inhaled Oxygen - Concentration 07/26/2018 12:09 PM STRATEGY EXECUTION CONSULTANT Weight 61.2 kg (135 lb) 07/26/2018 12:09 PM STRATEGY EXECUTION CONSULTANT Height 167.6 cm (5' 6") 07/26/2018 12:09 PM STRATEGY EXECUTION CONSULTANT Body Mass Index 21.79 in this encounter Functional Status Date of Assessment [...] cognitive impairment: No as of this encounter Progress Notes * Eloy Hayes MD - 07/26/2018 12:45 PM STRATEGY EXECUTION CONSULTANT SP[facility] CENTER CLINIC NOTE SUBJECTIVE: Mr. Marcus presents in follow up. Trigger point injections reduced pain in the neck by about 50%. He was evaluated by Dr. Ortiz for right knee pain and no surgery is planned at this time. Oxycodone 5 mg is taking the edge off of the pain. He feels that progress is being made in physical therapy. Review of Systems Constitutional: Negative. HENT: Negative. Eyes: Negative. Respiratory: Negative. Cardiovascular: Negative. Gastrointestinal: Negative. Endocrine: Negative. Genitourinary: Negative. Musculoskeletal: Negative. Skin: Negative. Allergic/Immunologic: Negative. Neurological: Negative. Hematological: Negative. Psychiatric/Behavioral: Negative. All other systems reviewed and are negative. Current Outpatient Medications: baclofen (LIORESAL) 10 mg tablet, TAKE 1 TABLET BY MOUTH TWICE DAILY, Disp : 60 tablet, Rfl: 2 diazePAM (VALIUM) 5 mg tablet, Take one tablet by mouth twice daily as needed for Anxiety., Disp: 60 tablet, Rfl: 2 gabapentin (NEURONTIN) 600 mg tablet, Take 2 tablets by mouth every 8 hours., Disp: 180 capsule, Rfl: 3 [START ON 09/29/2018] oxyCODONE (ROXICODONE, OXY-IR) 5 mg tablet, Take one tablet by mouth daily as needed for Pain Earliest Fill Date: 09/29/18, Disp: 30 tablet, Rfl: 0 oxyCODONE (ROXICODONE, OXY-IR) 5 mg tablet, Take one tablet by mouth daily as needed, Disp: 30 tablet, Rfl: 0 oxyCODONE (ROXICODONE, OXY-IR) 5 mg tablet, Take 1 tablet by mouth every 8 hours as needed for Pain, Disp: 90 tablet, Rfl: 0 tiZANidine (ZANAFLEX) 4 mg tablet, Take 1 tablet by mouth twice daily., Disp: 60 tablet, Rfl: 4 traMADol (ULTRAM) 50 mg tablet, Take one tablet by mouth twice daily as needed for Pain., Disp: 30 tablet, Rfl: 0 No Known Allergies Physical Exam Vitals: 07/26/18 1209 BP: 121/76 Pulse: 76 Weight: 61.2 kg (135 lb) Height: 167.6 cm (66") Pain Score: Five Body mass index is 21.79 kg/m. General: Alert and oriented, very pleasant male. HEENT showed extraocular muscles were intact and no other abnormalities. Unlabored breathing. Regular rate and rhythm on CV exam. 5/5 strength in bilateral upper and lower extremities. Sensation is intact to light touch and equal in the upper and lower extremities. Bilateral posterior cervical tenderness with trigger points palpable IMPRESSION: 1. Myalgia, other site 2. Degeneration of cervical intervertebral disc 3. Cervical radicular pain 4. Chronic pain of right knee PLAN: Will refill oxycodone as described above and schedule a 3 month follow up in clinic for possible repeat trigger point injections. TEGY EXECUTION CONSULTANT in this encounter Plan of Treatment Order Schedule Name Priority Associated Diagnoses Expected: 07/26/2018, Expires: 10/23/2018 [facility] SP[facility] TRIGGER POINT INJECTION Routine Myalgia, other site Degeneration of cervical intervertebral disc Cervical radicular pain Chronic pain of right knee as of this encounter Visit Diagnoses Diagnosis Myalgia, other site - Primary Degeneration of cervical intervertebral disc Cervical radicular pain Brachial neuritis or radiculitis nos Chronic pain of right knee in this encounter
--- OUTSIDE RECORDS SUMMARY | 2018-08-16 09:54 | XMS REPORT | Encounter Summary ---
Author Author [facility] Organization [facility] Address Unknown Phone Unavailable Care Team Providers Care Receiving Lead Name Role Phone Peter Foote MD Unavailable Unknown, Unknown PCP Unavailable Encounter Details Care Team Description Date Type Department Antolin Ortiz MD [address] [place] [address] [phone] Bilateral foot-drop (Primary Dx) 07/07/2018 Orders Only [facility] [address] [address] [place] [address] Social History Date Tobacco Use Types Packs/Day [...] Status Date of Assessment Functional Status Response 07/06/2018 Does the patient have a hearing impairment: No 07/06/2018 Does the patient have a visual impairment: Yes 07/06/2018 Does the patient have impaired ambulation: Yes 07/06/2018 Does the patient have an activity of daily living No (ADL) impairment: 07/06/2018 Does the patient have an instrumental activity of No daily living (IADL) impairment: Date of Assessment Cognitive Status Response 07/06/2018 Does the patient have a cognitive impairment: No as of this encounter Plan of Treatment Not on fileas of this encounter Visit Diagnoses Diagnosis Bilateral foot-drop - Primary Other acquired deformity of ankle and foot in this encounter
--- OUTSIDE RECORDS SUMMARY | 2018-08-16 09:55 | XMS REPORT | Encounter Summary ---
Author Author [facility] Organization [facility] Address Unknown Phone Unavailable Care Team Providers Care Communications Professor Name Role Phone Peter Foote MD Unavailable Unknown, Unknown PCP Unavailable Encounter Details Care Team Description Date Type Department Eloy Hayes MD [address] [place] [address] 05/31/2018 [facility] Encounter [facility] [address] [place] [address] Social History Date Tobacco Use Types Packs/Day Years Used Current Every Day Smoker Cigarettes 0.5 Smokeless Tobacco: Never Used [...] Status Date of Assessment Functional Status Response 03/29/2018 Does the patient have a hearing impairment: No 03/29/2018 Does the patient have a visual impairment: Yes 03/29/2018 Does the patient have impaired ambulation: Yes 03/29/2018 Does the patient have an activity of daily living No (ADL) impairment: 03/29/2018 Does the patient have an instrumental activity of No daily living (IADL) impairment: Date of Assessment Cognitive Status Response 03/29/2018 Does the patient have a cognitive impairment: No as of this encounter Medications at Time of Discharge Start Date End Date Medication Sig Dispensed Refills 05/31/2018 oxyCODONE (ROXICODONE, Take one 30 tablet 0 OXY-IR) 5 mg tablet tablet by mouth daily as needed 09/21/2017 oxyCODONE (ROXICODONE, Take 1 tablet 90 tablet 0 OXY-IR) 5 mg tablet by mouth every 8 hours as needed for Pain 04/01/2018 07/27/2018 baclofen (LIORESAL) 10 mg TAKE 1 TABLET 60 tablet 2 tablet BY MOUTH TWICE DAILY 05/31/2018 07/27/2018 diazePAM (VALIUM) 5 mg Take one 60 tablet 2 tablet tablet by mouth twice daily as needed for Anxiety. 12/21/2017 07/27/2018 gabapentin (NEURONTIN) Take 2 180 capsule 3 600 mg tablet tablets by mouth every 8 hours. 06/30/2018 07/26/2018 oxyCODONE (ROXICODONE, Take one 30 tablet 0 OXY-IR) 5 mg tablet tablet by mouth daily as needed for Pain Earliest Fill Date: 06/30/18 12/21/2017 07/27/2018 tiZANidine (ZANAFLEX) 4 Take 1 tablet 60 tablet 4 mg tablet by mouth twice daily. as of this encounter Plan of Treatment Not on fileas of this encounter Procedures Comments Procedure Name Priority Date/Time Associated Diagnosis KNEE 3 VIEWS RIGHT Routine 05/31/2018 Degeneration of cervical 3:45 PM FACING BASTER JUMPBASTING intervertebral disc Cervical radicular pain Lumbar radicular pain in this encounter Results * KNEE 3 VIEWS RIGHT (05/31/2018 3:45 PM FACING BASTER JUMPBASTING) Impressions Performed At Findings/Impression: [facility] RESULTS [...] Interface, Radiant Results - 05/31/2018 4:19 PM FACING BASTER JUMPBASTING KNEE 3 VIEWS RIGHT Clinical Indication: pain.Right [...] Address City/State/Zipcode Phone Number [facility] RESULTS in this encounter Visit Diagnoses Diagnosis Degeneration of cervical intervertebral disc Cervical radicular pain Brachial neuritis or radiculitis nos Lumbar radicular pain Thoracic or lumbosacral neuritis or radiculitis, unspecified in this encounter
--- OUTSIDE RECORDS SUMMARY | 2018-08-16 09:55 | XMS REPORT | Encounter Summary ---
Author Author [facility] Organization [facility] Address Unknown Phone Unavailable Care Team Providers Care [employer] Physical Education Teacher Name Role Phone Peter Foote MD Unavailable Unknown, Unknown PCP Unavailable Reason for Visit * Reason Comments Fall Encounter Details Care Team Description Date Type Department Eloy Munoz MD [address] [facility] [place], [place] [id number] Fall 06/08/2018 Telephone Sp[facility] Center Anest[facility] Pain Clinic Arsalan Olivera MD [facility] [address] [place] [address] Social History Date Tobacco Use Types Packs/Day [...] as of this encounter Miscellaneous Notes * Telephone Encounter - Jaison Tay RN - 06/08/2018 12:10 PM SALES CONSULTING DIRECTOR Reporting fall 2 days ago, LOw back pain aggravated, recc cold compress sand NSADIS as tolerated and directed omn l;tristan. Will follow up on ortho consult. Pt has clinic f/u sched with Dr Munoz S CONSULTING DIRECTOR in this encounter Plan of Treatment Not on fileas of this encounter Visit Diagnoses Not on filein this encounter
--- OUTSIDE RECORDS SUMMARY | 2018-08-16 09:55 | XMS REPORT | Encounter Summary ---
Author Author [facility] Organization [facility] Address Unknown Phone Unavailable Care Team Providers Care Test Designer Name Role Phone Peter Foote MD Unavailable Unknown, Unknown PCP Unavailable Reason for Visit * Reason Comments Pain Encounter Details Care Team Description Date Type Department Eloy Hayes MD [address] [facility] [place], [place] [id number] Pain 06/28/2018 Telephone Spine Center Anesthesia Pain Procedure Arsalan Olivera MD [facility] [address] [place] [address] Social History Date Tobacco Use Types Packs/Day [...] Status Date of Assessment Functional Status Response 06/27/2018 Does the patient have a hearing impairment: No 06/27/2018 Does the patient have a visual impairment: No 06/27/2018 Does the patient have impaired ambulation: Yes 06/27/2018 Does the patient have an activity of daily living No (ADL) impairment: 06/27/2018 Does the patient have an instrumental activity of No daily living (IADL) impairment: Date of Assessment Cognitive Status Response 06/27/2018 Does the patient have a cognitive impairment: No as of this encounter Miscellaneous Notes * Telephone Encounter - Jaison Tay RN - 06/28/2018 11:47 AM CAPTAIN ROOM SERVICE Pt called reporting another fall due to knees. He is asking for an appointment for aggravated back pain. Attempt to call back to new cell number x 2 . Call answered but no one responded. Will await further contact.Pt has an appt scheduled AIN ROOM SERVICE in this encounter Plan of Treatment Not on fileas of this encounter Visit Diagnoses Not on filein this encounter
--- OUTSIDE RECORDS SUMMARY | 2018-08-16 09:55 | XMS REPORT | Encounter Summary ---
Author Author [facility] Organization [facility] Address Unknown Phone Unavailable Care Team Providers Care Piano Accompanist Name Role Phone Peter Foote MD Unavailable Unknown, Unknown Md PCP Unavailable Reason for Referral * Consult, Test & Treat (Routine) Referred By Contact Referred To Contact Status Reason Specialty Diagnoses / Procedures Antolin Ortiz MD [address] [place] [address] Closed Specialty Services Diagnoses Required Right knee pain, unspecified chronicity Chondromalacia patellae of right knee Reason for Visit * Reason Comments Pain Referral * Consult, Test & Treat (Routine) Referred By Contact Referred To Contact Status Reason Specialty Diagnoses / Procedures Eloy Hayes MD [address] [place] [address] Antolin Ortiz MD [address] [place] [address] No Auth Needed Specialty Services Orthopedic Diagnoses Required Surgery Degeneration of cervical intervertebral disc Cervical radicular pain Lumbar radicular pain Encounter Details Care Team Description Date Type Department Antolin Ortiz MD [address] [place] [address] Chondromalacia patellae of right knee (Primary Dx); Right knee pain, unspecified chronicity 06/27/2018 Office Visit [facility] [address] [place] [address] Social History Date Tobacco Use Types Packs/Day [...] Vital Signs Time Taken Vital Sign Reading 06/27/2018 9:23 AM CAMPUS RECRUITING COORDINATOR Blood Pressure 115/76 06/27/2018 9:23 AM CAMPUS RECRUITING COORDINATOR Pulse 93 - Temperature - 06/27/2018 9:23 AM CAMPUS RECRUITING COORDINATOR Respiratory Rate 15 06/27/2018 9:23 AM CAMPUS RECRUITING COORDINATOR Oxygen Saturation 98% - Inhaled Oxygen - Concentration 06/27/2018 9:23 AM CAMPUS RECRUITING COORDINATOR Weight 59 kg (130 lb) 06/27/2018 9:23 AM CAMPUS RECRUITING COORDINATOR Height 170.2 cm (5' 7") 06/27/2018 9:23 AM CAMPUS RECRUITING COORDINATOR Body Mass Index 20.36 in this encounter Functional Status Date of [...] cognitive impairment: No as of this encounter Patient Instructions * Patient Instructions* Shahana Chi RN - 06/27/2018 9:30 AM CAMPUS RECRUITING COORDINATOR MD Hari Almeida PA-C [facility] | | [address] [place] [address], [facility] [address] | [place] [address] Shahana Chi RN | Clinical Nurse Coordinator Juan Galeano ATC | Clinical Farm General Manager US RECRUITING COORDINATOR in this encounter Progress Notes * Antolin Ortiz MD - 06/27/2018 9:30 AM CAMPUS RECRUITING COORDINATOR Date of Service: 06/27/2018 History of Present IllnessDariel Marcus is a 58 y.o. male who presents with c/o right knee pain. He is referred by Dr. Eloy Hayes. He rates his pain 10 today. He underwent previous open right knee surgery, which appears to be right knee MCL repair and tibial plateau fracture fixation, approximately 25 years ago, which healed well. He is uncertain of specifically what his injury was or what was done. He localizes the majority of his pain along the anteromedial and occasionally anterolateral aspects of his knee, which he describes as sharp and stabbing in nature today. Denies mechanical symptoms, such as catching or locking, but does note subjective instability. Intermittent swelling. He has noted progressively increasing pain, specifically over the past few weeks. Denies any signs or symptoms of radiculopathy. His pain is made worse with weight bearing activities, such as prolonged walking and/or standing. He has tried anti-inflammatories and activity modification, both of which he feels has provided temporary relief, but denies PT and/or injections. He is ambulating with a cane today. He presents to clinic to pursue further management options. Review of Systems HENT: Positive for hearing loss and tinnitus. Eyes: Positive for photophobia. Respiratory: Positive for apnea. Endocrine: Positive for cold intolerance. Genitourinary: Positive for flank pain. Musculoskeletal: Positive for arthralgias, back pain, gait problem, joint swelling, myalgias, neck pain and neck stiffness. Neurological: Positive for weakness and numbness. Psychiatric/Behavioral: Positive for sleep disturbance. The patient is nervous/ anxious. Past Medical History: Diagnosis Date Murmur Past Surgical History: Procedure Laterality Date CERVICAL SPINE SURGERY Objective: baclofen (LIORESAL) 10 mg tablet TAKE 1 TABLET BY MOUTH TWICE DAILY diazePAM (VALIUM) 5 mg tablet Take one tablet by mouth twice daily as needed for Anxiety. gabapentin (NEURONTIN) 600 mg tablet Take 2 tablets by mouth every 8 hours. [START ON 06/30/2018] oxyCODONE (ROXICODONE, OXY-IR) 5 mg tablet Take one tablet by mouth daily as needed for Pain Earliest Fill Date: 06/30/18 oxyCODONE (ROXICODONE, OXY-IR) 5 mg tablet Take one tablet by mouth daily as needed oxyCODONE (ROXICODONE, OXY-IR) 5 mg tablet Take 1 tablet by mouth every 8 hours as needed for Pain tiZANidine (ZANAFLEX) 4 mg tablet Take 1 tablet by mouth twice daily. Vitals: 06/27/18 0923 BP: 115/76 Pulse: 93 Resp: 15 SpO2: 98% Weight: 59 kg (130 lb) Height: 170.2 cm (67") Body mass index is 20.36 kg/m. Social History Socioeconomic History Marital status: Spouse name: Not on file Number of children: Not on file Years of education: Not on file Highest education level: Not on file Social Needs Financial resource strain: Not on file Food insecurity - worry: Not on file Food insecurity - inability: Not on file Transportation needs - medical: Not on file Transportation needs - non-medical: Not on file Occupational History Not on file Tobacco Use Smoking status: Current Every Day Smoker Packs/day: 0.50 Types: Cigarettes Smokeless tobacco: Never Used Tobacco comment: 1 pack a cig over two days Substance and Sexual Activity Alcohol use: No Drug use: No Sexual activity: Not on file Other Topics Concern Not on file Social History Narrative Not on file Physical Exam Ortho Exam General Healthy appearing 58 y.o. male in no acute distress. Alert and oriented x 3. Mood and affect are appropriate today. Constitutional: He is oriented to person, place, and time. He appears well- developed and well-nourished. HENT: Head: Normocephalic and atraumatic. Eyes: Conjunctivae and EOM are normal. Cardiovascular: Normal rate and intact distal pulses. Pulmonary/Chest: Effort normal. No respiratory distress. Neurological: He is alert and oriented to person, place, and time. Skin: Skin is warm and dry. Psychiatric: He has a normal mood and affect. His behavior is normal. Judgment and thought content normal. Nursing note and vitals reviewed. Knee Exam: Right knee was evaluated. Skin intact. 5 degrees of hyperextension (symetric) , 135 degrees flexion, with aggravation of anterior knee pain in terminal flexion. No effusion. Stable to varus/valgus stress at 0 and 30 degrees. Mildly tender lateral jt line. Mildly tender medial jt line. Negative medial and lateral Alan test. Negative gustavo. Negative anterior drawer. Negative posterior drawer. Negative patellar apprehension test. Mild retropatellar crepitus noted. Quad MS 5/5. Neurovascularly intact. Comments: Well-healed medial and anterolateral incisions. Neutral coronal plane alignment. Negative pivot shift. Normal patellar tracking. Positive grind test. Patellar and quadriceps tendons are intact and non-tender. 1 quadrant of lateral patellar excursion, with a firm end point. Imaging: Orthogonal radiographs of his right knee were obtained and reviewed. Transverse oriented screw fixation within the proximal [...] and patellofemoral articulation unremarkable. No joint effusion. Assessment and Plan: 58 y.o.male with right knee patellar chondromalacia and diffuse lower extremity weakness I discussed the patients history, physical exam, and imaging findings today. Spent the majority of our 25 minute encounter today discussing clinical exam and imaging, as well as all possible treatment options. We also discussed treatment options including operative and non-operative management. Based on his exam findings and symptomatology, I recommended treating his symptoms conservatively with a right knee cortisone injection today in clinic for therapeutic purposes, in conjunction with a formal course of PT to establish a consistent HEP, with a particular focus on ROM and core strengthening exercises , and he will be provided with a script for this today. If his pain persists and/or worsens, despite conservative management, he will RTC to discuss further management options. He does not require a scheduled followup with us, but certainly can return at any point in the future as his symptoms dictate. All of his questions were answered to his satisfaction. He voiced clear understanding of this treatment plan and agreed. ATTESTATION I have taken down these notes in the presence of Dr. Antolin Ortiz. Staff name: Mela Bueno Date: 06/27/2018 US RECRUITING COORDINATOR in this encounter Procedure Notes * Antolin Ortiz MD - 06/27/2018 9:30 AM CAMPUS RECRUITING COORDINATOR Associated Order(s): Large Joint Drain/Inject Post-Procedure Diagnose(s): Chondromalacia patellae of right knee Large Joint Drain/Inject Location: knee R knee Consent: Consent obtained: verbal Consent given by: patient Risks discussed: infection, nerve damage, pain, skin discoloration and soft tissue reaction Alternatives discussed: alternative treatment Discussed with patient the purpose of the treatment/procedure, other ways of treating my condition, including no treatment/ procedure and the risks and benefits of the alternatives. Patient has decided to proceed with treatment/ procedure. Nelson Protocol: Relevant documents: relevant documents present and [...] to verify the correct patient, procedure, equipment, naval surface fire support planner and site/side marked as required Procedures Details: Indications: pain Prep: povidone-iodine Local anesthetic: ethyl chloride spray Needle size: 22 G Approach: lateral and superior Medications administered: 4 mL ropivacaine (PF) 0.5% (5 mg/mL); 40 mg triamcinolone acetonide 40 mg/mL Patient tolerance: Patient tolerated the procedure well with no immediate complications. Pressure was applied, and hemostasis was accomplished. US RECRUITING COORDINATOR in this encounter Plan of Treatment Order Schedule Name Priority Associated Diagnoses Ordered: 06/27/2018 AMB REFERRAL TO PHYSICAL THERAPY Routine Right knee pain, unspecified chronicity Chondromalacia patellae of right knee as of this encounter Procedures Comments Procedure Name Priority Date/Time Associated Diagnosis GA ARTHROCENTESIS Routine 06/27/2018 Chondromalacia patellae ASPIR&/INJ MAJOR JT/BURSA 9:30 AM CAMPUS RECRUITING COORDINATOR of right knee W/O US in this encounter Results * Large Joint Drain/Inject (06/27/2018 9:30 AM CAMPUS RECRUITING COORDINATOR) Narrative Performed At Antolin Ortiz MD 06/27/20184:54 [...] Patient has decided to proceed with treatment/procedure. Nelson Protocol: Relevant documents: relevant documents present and [...] to verify the correct patient, procedure, equipment, naval surface fire support planner and site/side marked as required Procedures Details: Indications: pain Prep: povidone-iodine Local anesthetic: ethyl chloride spray Needle size: 22 G Approach: lateral and superior Medications administered: 4 mL ropivacaine (PF) 0.5% (5 mg/mL); 40 mg triamcinolone acetonide 40 mg/mL Patient tolerance: Patient tolerated the procedure well with no immediate complications. Pressure was applied, and hemostasis was accomplished. Performing Organization Address City/State/Zipcode Phone Number OTHER OUTSIDE LAB in this encounter Visit Diagnoses Diagnosis Chondromalacia patellae of right knee - Primary Chondromalacia of patella Right knee pain, unspecified chronicity in this encounter Administered Medications Action Date Dose Rate Site Medication Order MAR Action 06/27/2018 10:11 AM CAMPUS RECRUITING COORDINATOR 4 mL ropivacaine (PF) (NAROPIN) 0.5% (5 Given mg/mL) injection 4 mL 4 mL, Injection, ONCE PRN, 1 dose, Starting Wed06/27/18 at 1011, Until Wed06/27/18 at 1011 06/27/2018 10:11 AM CAMPUS RECRUITING COORDINATOR 40 mg triamcinolone acetonide (KENALOG-40) Given injection 40 mg 40 mg, Injection, ONCE PRN, 1 dose, Starting Wed06/27/18 at 1011, Until Wed06/27/18 at 1011 in this encounter
--- OUTSIDE RECORDS SUMMARY | 2018-08-16 09:55 | XMS REPORT | Encounter Summary ---
Author Author [facility] Organization [facility] Address Unknown Phone Unavailable Care Team Providers Care Ornamental Metalwork Designer Name Role Phone Peter Foote MD Unavailable Unknown, Unknown Md PCP Unavailable Reason for Referral * Consult, Test & Treat (Routine) Referred By Contact Referred To Contact Status Reason Specialty Diagnoses / Procedures Eloy Hayes MD [address] [place] [address] Antolin Ortiz MD [address] [place] [address] No Auth Needed Specialty Services Orthopedic Diagnoses Required Surgery Degeneration of cervical intervertebral disc Cervical radicular pain Lumbar radicular pain Reason for Visit * Reason Comments Pain Encounter Details Care Team Description Date Type Department Eloy Hayes MD [address] [place], [place] [id number] Degeneration of cervical intervertebral disc (Primary Dx); Cervical radicular pain; Lumbar radicular pain 05/31/2018 Office Visit [facility] [address] [facility] [address] [place] [address] Social History Date Tobacco Use Types Packs/Day [...] Vital Signs Time Taken Vital Sign Reading 05/31/2018 3:07 PM LEAD NUCLEAR MEDICINE TECHNOLOGIST Blood Pressure 125/77 05/31/2018 3:07 PM LEAD NUCLEAR MEDICINE TECHNOLOGIST Pulse 95 - Temperature - - Respiratory Rate - 05/31/2018 3:07 PM LEAD NUCLEAR MEDICINE TECHNOLOGIST Oxygen Saturation 96% - Inhaled Oxygen - Concentration 05/31/2018 3:07 PM LEAD NUCLEAR MEDICINE TECHNOLOGIST Weight 59.4 kg (131 lb) 05/31/2018 3:07 PM LEAD NUCLEAR MEDICINE TECHNOLOGIST Height 170.2 cm (5' 7") 05/31/2018 3:07 PM LEAD NUCLEAR MEDICINE TECHNOLOGIST Body Mass Index 20.52 in this encounter Functional Status Date of [...] Progress Notes * Eloy Hayes MD - 05/31/2018 3:15 PM LEAD NUCLEAR MEDICINE TECHNOLOGIST SP[facility] CENTER CLINIC NOTE Subjective SUBJECTIVE: Mr. Marcus presents in follow up for care regarding back and lower extremity pain. Pain is bilateral and intermittently sharp and dull. Pain is moderately controlled with oxycodone 5 mg po qd prn. Review of Systems Constitutional: Positive for activity change, appetite change and unexpected weight change. HENT: Positive for ear pain, hearing loss and tinnitus. Eyes: Positive for photophobia. Respiratory: Positive for apnea. Endocrine: Positive for cold intolerance. Genitourinary: Positive for flank pain. Musculoskeletal: Positive for arthralgias, back pain, gait problem, myalgias, neck pain and neck stiffness. Neurological: Positive for weakness and numbness. Psychiatric/Behavioral: Positive for sleep disturbance. The patient is nervous/ anxious. All other systems reviewed and are negative. [...] Disp: 180 capsule, Rfl: 3 [START ON 06/30/2018] oxyCODONE (ROXICODONE, OXY-IR) 5 mg tablet, Take one tablet by mouth daily as needed for Pain Earliest Fill Date: 06/30/18, Disp: 30 tablet, Rfl: 0 oxyCODONE (ROXICODONE, [...] twice daily., Disp: 60 tablet, Rfl: 4 No Known Allergies Physical Exam Vitals: 05/31/18 1507 BP: 125/77 Pulse: 95 SpO2: 96% Weight: 59.4 kg (131 lb) Height: 170.2 cm (67") Oswestry Total Score:: 52 Pain Score: Five Body mass index is 20.52 kg/m. General: Alert and oriented, very pleasant female. HEENT showed extraocular muscles were intact and no other abnormalities. Unlabored breathing. Regular rate and rhythm on CV exam. 5/5 strength in bilateral upper and lower extremities. Sensation is intact to light touch and equal in the upper and lower extremities. Bilateral lumbar tenderness to palpation Right knee tenderness with flexion and extension Gait is antalgic favoring the right lower extremity. IMPRESSION: 1. Degeneration of cervical intervertebral disc 2. Cervical radicular pain 3. Lumbar radicular pain PLAN: Will refill oxycodone and order a standing xray of the right knee and orthopedic consult with Dr. Ortiz.I NUCLEAR MEDICINE TECHNOLOGIST in this encounter Miscellaneous Notes * Addendum Note - Eloy Hayes MD - 05/31/2018 3:15 PM LEAD NUCLEAR MEDICINE TECHNOLOGIST Addended by: ELOY HAYES on: 05/31/2018 03:46 PM Modules accepted: Orders NUCLEAR MEDICINE TECHNOLOGIST in this encounter Plan of Treatment Order Schedule Name Priority Associated Diagnoses Ordered: 05/31/2018 AMB REFERRAL TO ORTHOPEDICS Routine Degeneration of cervical intervertebral disc Cervical radicular pain Lumbar radicular pain as of this encounter Results * KNEE 3 VIEWS RIGHT (05/31/2018 3:45 PM LEAD NUCLEAR MEDICINE TECHNOLOGIST) Impressions Performed At Findings/Impression: [facility] RAD RESULTS [...] Interface, Radiant Results - 05/31/2018 4:19 PM LEAD NUCLEAR MEDICINE TECHNOLOGIST KNEE 3 VIEWS RIGHT Clinical Indication: pain.Right [...] Diagnoses Diagnosis Degeneration of cervical intervertebral disc - Primary Cervical radicular pain Brachial neuritis or radiculitis nos Lumbar radicular pain Thoracic or lumbosacral neuritis or radiculitis, unspecified in this encounter
--- NOTE | 2018-08-16 12:09 | ED General ---
General Chief Complaint: General Problems/Pain Stated Complaint: HERNIA;R EAR CLOGGED Nursing Triage Note: C/O HERNIA PROTRUSION TO RIGH HIP AREA. STATES HAS HAD IT FIXED A FEW TIMES. ALSO C/O R-EAR CLOGGED. Nursing Sepsis Screen: No Definite Risk Source of Information: Patient Exam Limitations: No Limitations History of Present Illness Date Seen by Provider: Aug 16, 2018 Time Seen by Provider: 11:45 Initial Comments 58-year-old male who presents to the emergency room with complaints of right inguinal hernia protruding out after lifting heavy tires onto a trailer yesterday. He's had the hernia repaired 3 times. He also complains of right ear being clogged with wax. Denies pain. Timing/Duration: 1 Day Associated Systoms: Denies Symptoms Allergies and Home Medications Allergies Coded Allergies: No Known Drug Allergies (Unverified , 08/11/18) Home Medications Baclofen 10 Mg Tablet, 10 MG PO TID PRN for MUSCLE SPASMS, (Reported) Gabapentin 300 Mg Capsule, 300 MG PO BID Prescribed by: RENUKA THRASHER on 07/20/16 0823 Naproxen 500 Mg Tablet, 500 MG PO BID WITH MEALS, (Reported) Oxycodone HCl/Acetaminophen 1 Each Tablet, 1 EACH PO Q6H PRN for PAIN Prescribed by: MAGALI STEVENSON on 07/20/16 1052 Tizanidine HCl 4 Mg Tablet, 4 MG PO TID PRN for MUSCLE CRAMPS, (Reported) Patient Home Medication List Home Medication List Reviewed: Yes Review of Systems Review of Systems Constitutional: no symptoms reported, see HPI Gastrointestinal: see HPI, other (right inguinal hernia protruding) All Other Systems Reviewed Negative Unless Noted: Yes Past Mgzecpk-Beiwdh-Rbtztm Hx Past Med/Social Hx: Reviewed Nursing Past Med/Soc Hx Patient Social History Alcohol Use: Denies Use Recreational Drug Use: Yes (PAST USE METH ,HEROIN) Type Used: Electronic/Vapor, Smokeless Tobacco Recent Foreign Travel: No Contact w/Someone Who Travel: No Recent Infectious Disease Expo: No Recent Hopitalizations: No Seasonal Allergies Seasonal Allergies: No Past Medical History Surgeries: Yes (neck and back surgery (logging accident), L ing hernia repair, R knee) Respiratory: No Cardiac: No Irregular Heartbeat Neurological: No (neuropathy from logging accident) Reproductive Disorders: No Gastrointestinal: Yes Gastroesophageal Reflux, Hiatal Hernia Musculoskeletal: Yes (restless leg) Arthritis, Back Injury, Chronic Back Pain Endocrine: No Cancer: No Psychosocial: Yes Anxiety Integumentary: No Blood Disorders: No Family Medical History Reviewed Nursing Family Hx Physical Exam Vital Signs Vital Signs - First Documented 08/16/18 11:16 Temp 98.0 Pulse 55 Resp 18 B/P (MAP) 124/77 (93) Pulse Ox 97 O2 Delivery Room Air Capillary Refill : Less Than 3 Seconds Height, Weight, BMI Height: 5'6.00" Weight: 140lbs. 0.0oz. [id number]; 17.9 BMI Method:Stated General Appearance: No Apparent Distress, WD/WN HEENT: PERRL/EOMI, Normal ENT Inspection, Pharynx Normal, Other (TMs normal bilaterally after wax removal of the right ear.) Respiratory: Chest Non Tender, Lungs Clear, Normal Breath Sounds, No Accessory Muscle Use, No Respiratory Distress Cardiovascular: Regular Rate, Rhythm, No Edema, No Gallop, No JVD, No Murmur, Normal Peripheral Pulses Gastrointestinal: Normal Bowel Sounds, No Organomegaly, No Pulsatile Mass, Non Tender, Soft, Hernia (Right inguinal protruding) Neurologic/Psychiatric: Alert, Oriented x3, Normal Mood/Affect Progress/Results/Core Measures Suspected Sepsis Recent Fever Within 48 Hours: No Infection Criteria Present: None New/Unexplained Altered Menta: No Sepsis Screen: No Definite Risk SIRS Temperature:98.0 Pulse: 55 Respiratory Rate: 18 Laboratory Tests 08/16/18 12:06: White Blood Count 7.7 Blood Pressure 124 /77 Mean: 93 Laboratory Tests 08/16/18 12:06: Creatinine 0.83, Platelet Count 261, Total Bilirubin 0.6 Results/Orders Lab Results Laboratory Tests Test 08/16/18 12:06 Range/Units White Blood Count 7.7 4.3-11.0 10^3/uL Red Blood Count 5.63 4.35-5.85 10^6/uL Hemoglobin 16.0 13.3-17.7 G/DL Hematocrit 48 40-54 % Mean Corpuscular Volume 84 80-99 FL Mean Corpuscular Hemoglobin 28 25-34 PG Mean Corpuscular Hemoglobin Concent 34 32-36 G/DL Red Cell Distribution Width 15.3 H 10.0-14.5 % Platelet Count 261 130-400 10^3/uL Mean Platelet Volume 10.8 H 7.4-10.4 FL Neutrophils (%) (Auto) 72 42-75 % Lymphocytes (%) (Auto) 19 12-44 % Monocytes (%) (Auto) 8 0-12 % Eosinophils (%) (Auto) 1 0-10 % Basophils (%) (Auto) 0 0-10 % Neutrophils # (Auto) 5.5 1.8-7.8 X 10^3 Lymphocytes # (Auto) 1.5 1.0-4.0 X 10^3 Monocytes # (Auto) 0.6 0.0-1.0 X 10^3 Eosinophils # (Auto) 0.1 0.0-0.3 10^3/uL Basophils # (Auto) 0.0 0.0-0.1 10^3/uL Sodium Level 145 135-145 MMOL/L Potassium Level 4.3 3.6-5.0 MMOL/L Chloride Level 110 H 98-107 MMOL/L Carbon Dioxide Level 23 21-32 MMOL/L Anion Gap 12 5-14 MMOL/L Blood Urea Nitrogen 17 7-18 MG/DL Creatinine 0.83 0.60-1.30 MG/DL Estimat Glomerular Filtration Rate > 60 BUN/Creatinine Ratio 20 Glucose Level 83 70-105 MG/DL Calcium Level 9.5 8.5-10.1 MG/DL Corrected Calcium 9.3 8.5-10.1 MG/DL Total Bilirubin 0.6 0.1-1.0 MG/DL Aspartate Amino Transf (AST/SGOT) 21 5-34 U/L Alanine Aminotransferase (ALT/SGPT) 22 0-55 U/L Alkaline Phosphatase 106 40-136 U/L Total Protein 7.2 6.4-8.2 GM/DL Albumin 4.2 3.2-4.5 GM/DL Amylase Level 89 25-125 U/L Lipase 90 H 8-78 U/L My Orders Orders - KATELIN GOLDSMITH Comprehensive Metabolic Panel (08/16/18 12:03) Lipase (08/16/18 12:03) Amylase (08/16/18 12:03) Saline Lock/Iv-Start (08/16/18 12:03) Cbc With Automated Diff (08/16/18 12:03) Ct Abdomen/Pelvis W (08/16/18 12:03) Iohexol Injection (Omnipaque 350 Mg/Ml 1 (08/16/18 12:45) Received Contrast (Contrast Received) (08/16/18 12:45) Ns (Ivpb) (Sodium Chloride 0.9% Ivpb Bag (08/16/18 12:45) Medications Given in ED Vital Signs/I&O Capillary Refill : Less Than 3 Seconds Blood Pressure Mean: 93 Progress Note : Time: 12:05 Progress Note I have seen and evaluated the patient. I was able to remove a moderate amount of cerumen out of the right ear and was able to visualize the tympanic membrane that is intact and pearly tang in color. We will check some basic labs and do a scan of his abdomen taking sure that his hernia is not incarcerated. His hernia was able to be reduced with gentle pressure. Diagnostic Imaging Diagonstic Imaging: CT Plain Films/CT/US/NM/MRI: abdomen, pelvis Comments NAME: LISA GILLIS [facility] REC#: [id number] PT STATUS: DEP ER : 1960 PHYSICIAN: KATELIN GOLDSMITH ADMIT DATE: 08/16/18/ER Signed Date of Exam: 08/16/18 CT ABDOMEN/PELVIS W PROCEDURE: CT abdomen and pelvis with contrast. TECHNIQUE: Multiple contiguous axial images were obtained through the abdomen and pelvis after administration of intravenous contrast. INDICATION: Right lower quadrant pain for one week. Correlation is made with prior CT from 07/06/2016. The lung bases are clear. Patient does have a pectus excavatum deformity. There is a hyperdensity in the inferior right lobe of the liver measuring approximate 4 mm. This may represent flash filling of a tiny hemangioma. No other liver lesions are seen. Gallbladder is contracted. There is no biliary ductal dilatation. The pancreas and spleen are unremarkable. No adrenal mass is identified. The kidneys are unremarkable. No definite calculi or hydronephrosis is seen. The aorta is non-aneurysmal. Bowel loops appear nonobstructed. Appendix is visualized in the right lower quadrant and appears unremarkable. No inflammatory changes in the right lower quadrant are seen. There is diverticulosis of the sigmoid but no evidence of acute diverticulitis. Bladder is unremarkable. Bony structures are nonacute. There are pars defects at L5-S1 level with grade 1 spondylolisthesis of L5 on S1. IMPRESSION: 1. No CT evidence of acute appendicitis. There is diverticulosis of the sigmoid colon but no evidence of acute diverticulitis. 2. No acute feature in the abdomen or pelvis. Dictated by: Dictated on workstation # [id number] Dict: 08/16/18 1323 Trans: 08/16/18 1614 Interpreted by: ELVIN GOULD MD Electronically signed by: ELVIN GOULD MD 08/16/18 1614 Reviewed: Reviewed by Me Departure Impression Primary Impression: Right inguinal hernia Additional Impression: Right ear impacted cerumen Disposition: HOME, SELF-CARE Condition: Stable/Unchanged Departure-Patient Inst. Decision time for Depature: 13:36 Referrals: CJ GERMAIN MD (PCP) Primary Care Physician MAGALI STEVENSON DO Patient Instructions: Ear Wax Impaction (DC), Inguinal and Femoral (Groin) Hernias Add. Discharge Instructions: Call Dr. Stevenson's office today for an appointment time to follow-up on your hernia and the need for possible repair. Return back to the emergency room for worsening pain, worsening symptoms, or any other concerns as needed. Follow-up with your primary care provider as needed. All discharge instructions reviewed with patient and/or family. Voiced understanding. KATELIN GOLDSMITH Aug 16, 2018 12:09
[2018-08-16 12:13] LABS: BASOPHILS % (AUTO) 0 % (0-10); EOSINOPHILS # (AUTO) 0.1 10^3/uL (0.0-0.3); EOSINOPHILS % (AUTO) 1 % (0-10); HEMATOCRIT 48 % (40-54); LYMPHOCYTES # (AUTO) 1.5 X 10^3 (1.0-4.0); LYMPHOCYTES % (AUTO) 19 % (12-44); MEAN CORPUSCULAR HEMOGLOBIN 28 PG (25-34); MEAN CORPUSCULAR HGB CONC 34 G/DL (32-36); MEAN CORPUSCULAR VOLUME 84 FL (80-99); MEAN PLATELET VOLUME 10.8 FL (7.4-10.4); MONOCYTES # (AUTO) 0.6 X 10^3 (0.0-1.0); MONOCYTES % (AUTO) 8 % (0-12); NEUTROPHILS # (AUTO) 5.5 X 10^3 (1.8-7.8); NEUTROPHILS % (AUTO) 72 % (42-75); PLATELET COUNT 261 10^3/uL (130-400); RED CELL DISTRIBUTION WIDTH 15.3 % (10.0-14.5); WHITE BLOOD COUNT 7.7 10^3/uL (4.3-11.0)
[2018-08-16 12:31] LABS: ALANINE AMINOTRANSFERASE 22 U/L (0-55); ALBUMIN 4.2 GM/DL (3.2-4.5); ALKALINE PHOSPHATASE 106 U/L (40-136); AMYLASE 89 U/L (25-125); BILIRUBIN,TOTAL 0.6 MG/DL (0.1-1.0); BUN/CREATININE RATIO 20; CALCIUM 9.5 MG/DL (8.5-10.1); CARBON DIOXIDE 23 MMOL/L (21-32); CHLORIDE 110 MMOL/L (98-107); CREATININE SERUM 0.83 MG/DL (0.60-1.30); GFR ESTIMATED > 60; GLUCOSE 83 MG/DL (70-105); LIPASE 90 U/L (8-78); POTASSIUM 4.3 MMOL/L (3.6-5.0); SODIUM 145 MMOL/L (135-145); TOTAL PROTEIN 7.2 GM/DL (6.4-8.2)
[2018-08-16] MEDS ORDERED: RECEIVED CONTRAST 20 ML VIAL IV SCH (12:45)
[2018-08-16] MEDS ORDERED: IOHEXOL 350 MG/ML 150 ML (OMNIPAQUE 350) VIAL IV ONE (12:45)
[2018-08-16] MEDS ORDERED: NS 100 ML (IVPB) BAG IV ONE (12:45)
--- NOTE | 2018-08-16 13:32 | Diagnostic Imaging Report ---
PROCEDURE: CT abdomen and pelvis with contrast. TECHNIQUE: Multiple contiguous axial images were obtained through the abdomen and pelvis after administration of intravenous contrast. INDICATION: Right lower quadrant pain for one week. Correlation is made with prior CT from 07/06/2016. The lung bases are clear. Patient does have a pectus excavatum deformity. There is a hyperdensity in the inferior right lobe of the liver measuring approximate 4 mm. This may represent flash filling of a tiny hemangioma. No other liver lesions are seen. Gallbladder is contracted. There is no biliary ductal dilatation. The pancreas and spleen are unremarkable. No adrenal mass is identified. The kidneys are unremarkable. No definite calculi or hydronephrosis is seen. The aorta is non-aneurysmal. Bowel loops appear nonobstructed. Appendix is visualized in the right lower quadrant and appears unremarkable. No inflammatory changes in the right lower quadrant are seen. There is diverticulosis of the sigmoid but no evidence of acute diverticulitis. Bladder is unremarkable. Bony structures are nonacute. There are pars defects at L5-S1 level with grade 1 spondylolisthesis of L5 on S1. IMPRESSION: 1. No CT evidence of acute appendicitis. There is diverticulosis of the sigmoid colon but no evidence of acute diverticulitis. 2. No acute feature in the abdomen or pelvis. Dictated by: Dictated on workstation # [id number]
[2018-08-16 14:13] VITALS: BP 137/71
== END 2018-08-16 14:13 | disposition home or self-care (01) ==
LOC: EDUNIT# 09:47 → ER 09:48
DX: K40.90 Unilateral inguinal hernia, without obstruction or gangrene, not specified as recurrent (principal); H61.21 Impacted cerumen, right ear; K21.9 Gastro-esophageal reflux disease without esophagitis; F41.9 Anxiety disorder, unspecified; G25.81 Restless legs syndrome; Z98.890 Other specified postprocedural states
CPT/HCPCS: 36415; 74177; 80053; 82150; 83690; 85025

== ENCOUNTER 2018-09-06 11:32 | Outpatient (CLI) | payer MEDICARE, BC ==
[~2018-09-06] VITALS: Ht 167.6 cm; Wt 63.5 kg
[2018-09-06] MEDS ORDERED: GABA-488 PO (11:49)
[2018-09-06] MEDS ORDERED: TRAM50TA2 PO (11:58)
[2018-09-06] MEDS ORDERED: DIAZ5TAB3 PO (11:58)
[2018-09-06] MEDS ORDERED: GBPN600T PO (11:58)
[2018-09-08] MEDS ORDERED: ACHD5005 PO (13:10)
== END 2018-09-06 11:59 | disposition home or self-care (01) ==
LOC: PREOP 11:32
PROVIDERS: ATTEND Surgery
DX: Z01.818 Encounter for other preprocedural examination (principal)

== ENCOUNTER 2018-09-08 08:19 | Day surgery (SDC) | payer MEDICARE, BC ==
[~2018-09-08] VITALS: Ht 167.6 cm; Wt 63.5 kg
[~2018-09-08 08:19] MED LIST changes: +DIAZ5TAB3 PO; +GBPN600T PO; +TRAM50TA2 PO
[2018-09-08] MEDS: LACTATED RINGERS 1,000 ML IV PRN ×3 (08:50→14:31)
[2018-09-08 09:00] VITALS: BP 121/81
[2018-09-08] MEDS ORDERED: ceFAZolin 2 GM IV Premixed 50 ML IV ONE (09:00)
[2018-09-08] MEDS ORDERED: CATHETER FLUSH 10 ML SYR IV PRN (09:00)
[2018-09-08] MEDS ORDERED: BUP/EPI 0.5% 1:200,000 (SENSORCAINE) 30 ML VIAL ONE (10:18)
[2018-09-08] MEDS ORDERED: LIDOCAINE 1% INJ 20 ML 20 ML VIAL ONE (10:18)
[2018-09-08] MEDS ORDERED: proPOfol 200 MG/20 ML (DIPRIVAN) VIAL IV ONE (10:54)
[2018-09-08] MEDS ORDERED: ROCURONIUM 10 MG/ML 5 ML SYRINGE IV ONE (10:54)
[2018-09-08] MEDS ORDERED: LIDOCAINE PF 2% 5 ML (XYLOCAINE) VIAL ONE (10:54)
[2018-09-08] MEDS ORDERED: fentaNYL INJECTION 100 MCG/2 ML AMP ONE (10:54)
[2018-09-08] MEDS ORDERED: ONDANSETRON 4 MG/2 ML (SDV) Z0FRAN ONE (10:54)
[2018-09-08] MEDS ORDERED: DEXAMETHASONE 10 MG/ML (DECADRON) 1 ML VIAL ONE (10:54)
[2018-09-08] MEDS ORDERED: MIDAZOLAM 2 MG/2 ML (VERSED) VIAL ONE (10:55)
[2018-09-08] MEDS ORDERED: SEVOFLURANE (ULTANE) 15 ML INHAL SOLN ONE ×4 (11:02→13:12)
--- NOTE | 2018-09-08 11:17 | Progress Note-Pre Operative ---
Pre-Operative Progress Note H&P Reviewed The H&P was reviewed, patient examined and no changes noted. Time Seen by Provider: 11:12 Date H&P Reviewed: Sep 08, 2018 Time H&P Reviewed: 11:13 Pre-Operative Diagnosis: recurrent right inguinal hernia, possible incarcerated MAGALI STEVENSON DO Sep 08, 2018 11:17
[2018-09-08] MEDS ORDERED: GLYCOPYRROLATE 0.2 MG/ML (ROBINUL) 2 ML VIAL ONE (13:09)
[2018-09-08] MEDS ORDERED: NEOSTIGMINE 1 MG/ML 5 ML SYRINGE ONE (13:09)
--- NOTE | 2018-09-08 13:09 | Progress Note-Post Operative ---
Post-Operative Progess Note Surgeon (s)/Claims Vice President (s) Surgeon MAGALI STEVENSON DO Claims Vice President: Robert Pre-Operative Diagnosis recurrent right inguinal hernia, possible incarcerated Post-Operative Diagnosis Recurrent right inguinal hernia Procedure & Operative Findings Date of Procedure 09/08/18 Procedure Performed/Findings Laparoscopic Robotic Inguinal herniarraphy with mesh placement Anesthesia Type GET Estimated Blood Loss Estimated blood loss (mL): scant Specimens/Packing Specimens Removed none MAGALI STEVENSON DO Sep 08, 2018 13:09
[2018-09-08] MEDS ORDERED: ACHD5005 PO (13:10)
--- NOTE | 2018-09-08 13:11 | Discharge Inst-Surgical ---
Discharge Inst-Surgical Depart Medication/Instructions New, Converted or Re-Newed RX: RX Given to Pt/Family Patient Instructions Follow up Appt: Make appointment for 1 week. [phone] Instructions: No lifting greater than 20 pounds. No strenuous activity. May shower in 24 hours, no tub bath or soaking. Use incentive spirometer at home as directed. No Smoking Skin/Wound Care: May remove bandages in am. You need to leave the Dermabond on incision it will fall off on it's own. Symptoms to Report: Appetite Changes, Extremity Discoloration, Numbness/Tingling, Swelling Increased , Bleeding Excessive, Eyesight Changes, Pain Increased, Urine Color Change, Constipation(Persistent), Fever over 101 degree F, Pain/Pressure in chest, Urinating Difficulty, Cough Up/Vomit Blood, Heart Beat Irreg/Pounding, Pain/ Pressure in jaw, Cramps in feet or legs, Lightheadedness, Pain/Pressure in shoulder, Diarrhea(Persistent), Memory Changes Suddenly, Questions/Concerns, Weight gain consecutive days, Dizziness/Fainting, Nausea/Vomiting, Shortness of Breath, Weight gain over 2 pounds If questions or concerns contact your physician Or seek help at emergency department. Activity Activity as Tolerated: Yes Activity Instructions: Avoid Stress to Incision Driving Instructions: No Driving/Refer to Dr. Jennings Discharge Diet: No Restrictions Diet After 24 Hours: Clear Liquid if Nauseous If Any Problems/Questions/Issu: Contact Your Physician, Go to Emergency Room Skin/Wound Care Infection Signs and Symptoms: Increased Redness, Foul Odor of Wound, Increased Drainage, Skin Itchy or Has a Rash, Increased Swelling, Temperature Above 101 F Wound Care Comment: heating pad to shoulder or neck tonight for pain Bathing Instructions: Shower Stitches/[place]/Dermabond Dis: Dermabond Ice Pack: Ice On and Off Site (as needed for pain) MAGALI STEVENSON DO Sep 08, 2018 13:11
[2018-09-08] MEDS ORDERED: ONDANSETRON 4 MG/2 ML (SDV) Z0FRAN IVP PRN (13:45)
[2018-09-08] MEDS ORDERED: morphine INJ 10 MG/ML 1ML (SYR OR VIAL) IVP ONE (13:45)
[2018-09-08] MEDS ORDERED: morphine INJ 10 MG/ML 1ML (SYR OR VIAL) ONE (14:08)
[2018-09-08 14:40] VITALS: BP 127/89
--- NOTE | 2018-09-08 14:50 | Anesthesia-General Post-Op ---
General Patient Condition Mental Status/LOC: Same as Preop Cardiovascular: Satisfactory Nausea/Vomiting: Absent Respiratory: Satisfactory Pain: Controlled Complications: Absent Post Op Complications Complications None Follow Up Care/Instructions Patient Instructions None needed. Anesthesia/Patient Condition Patient Condition Patient was seen after the procedure and he was doing well, no complaints, stable vital signs, no apparent adverse anesthesia problems. TONY WILLINGHAM DO Sep 08, 2018 14:50
[2018-09-08 15:10] VITALS: BP 129/81
[2018-09-08] MEDS ORDERED: HYDROcodone/APAP 5 MG/325 MG (LORTAB) TAB PO ONE (15:30)
[2018-09-08 15:40] VITALS: BP 144/84
[2018-09-08 16:05] VITALS: BP 144/84
--- NOTE | 2018-09-09 06:24 | OPERATIVE REPORT ---
DATE OF SERVICE: 09/08/2018 PREOPERATIVE DIAGNOSIS: Recurrent right inguinal hernia. POSTOPERATIVE DIAGNOSES: Recurrent right inguinal hernia, femoral hernia. The patient appeared to have indirect and direct inguinal hernias. SURGEON: Daniel Schwartz DO. TAB CUTTING MACHINE OPERATOR: Chico Jones DO. PROCEDURE: Right laparoscopic robotically assisted inguinal hernia repair with mesh placement as well as a femoral hernia repair. SPECIMENS: None. BLOOD LOSS: Scant. FLUIDS: Per anesthesia. POSTOPERATIVE CONDITION: Stable. INDICATION FOR PROCEDURE: The patient is a 58-year-old male who unfortunately had a recurrence of a right inguinal hernia. He has had it attempted twice open, so felt best to do this laparoscopically to go under to fix this. FINDINGS: The patient had what looked like indirect and then when the peritoneum was taken down, he has a direct as well as a femoral hernia. Pictures were taken and this was repaired. PROCEDURE NOTE: After informed consent was obtained, the patient was brought to the operating room, placed on the table in supine position, sterilely prepped and draped in normal fashion. Local lidocaine was used to infiltrate the skin above the umbilicus and I made an incision with #11 blade, carried down through the skin into subcutaneous tissue, then deepened down to subcutaneous tissue with Bovie electrocautery down to the fascia. Fascia was incised with Bovie electrocautery, bluntly entered the abdomen, swept a finger around, placed 0 Vicryl [id number] suture, then placed an 11 mm trocar port under direct visualization, created pneumoperitoneum, placed 2 more ports in normal fashion about 10 cm away on either side, 1 in right and 1 in left at about the same plane with local lidocaine, 11 blade for stab incision and then used the bladeless trocar for the robot, watched as it came in. Once this was done, the robot was then hooked up. The patient was placed in Trendelenburg and upon entry noted an indirect inguinal hernia, took a picture of this and then elected to start coming across the peritoneum. About 4 cm above the inguinal canal, I made a cut with the scissors and cautery, creating a flap all the way across about 16 to 18 cm across and then down right next to the paramedian ligament, then carefully started pushing the peritoneal reflection away and pushing the anterior tissue up, did this with blunt dissection as well as a little bit of Bovie electrocautery, went down medially to find the Sj's ligament and pubic tubercle and then started working laterally coming across and then carefully pulling out the hernia sac gently, taking care to stay away from the cord and cord structures, could see the vas deferens and vascular structures and then coming down, going about 2-3 cm below Sj's ligament, actually found a fat containing femoral hernia, removed the fat out of the femoral hernia, it was a small hernia, looked like maybe 0.5 cm on the visualization. Then continued the dissection laterally out to bring down the peritoneal reflection, so it was completely out of the way. Once we had a very good dissection, then elected to place a 3D Bard mesh, sutured laterally with a 14 x 8 cm mesh sutured laterally to hold in place and then sutured to the pubic tubercle to hold in place and then one in the anterior wall. This mesh then covered all the defects, looked very good, able to get it to lay flat and at this point then elected to close the peritoneal reflection, the defect we made, closed this with a 2-0 V-Loc running suture to close this defect, it closed nicely. There was very scant bleeding at this point, then removed all ports and undocked the robot. A supraumbilical incision was closed with 0 Vicryl, closing the fascia with 0 Vicryl suture previously placed. Copiously irrigated all incisions with normal saline. Closed the supraumbilical incision with 3 interrupted 4-0 undyed Monocryl subcuticular stitches and the two 8 mm incisions with two interrupted 4-0 undyed Monocryl subcuticular stitches. Area was cleaned and dried and Dermabond was placed as well as bandage. The patient tolerated the procedure and transferred to recovery room in stable condition. Sponge and needle count were correct at the end of the case. Dr. Jones assisted in this case helping to make incisions, closed the incisions, identifying anatomy and passed sutures. Job ID: [id number] DocumentID: [id number] Dictated Date: 09/08/2018 17:42:03 Adaptive Physical Educator Date: 09/09/2018 02:26:17 Dictated By: DO VICKEY CHADWICK
== END 2018-09-08 16:13 | disposition home or self-care (01) ==
LOC: SDC 08:19
PROVIDERS: ATTEND Surgery
DX: K40.91 Unilateral inguinal hernia, without obstruction or gangrene, recurrent (principal); K41.90 Unilateral femoral hernia, without obstruction or gangrene, not specified as recurrent; F17.210 Nicotine dependence, cigarettes, uncomplicated; K21.9 Gastro-esophageal reflux disease without esophagitis; K44.9 Diaphragmatic hernia without obstruction or gangrene; G62.9 Polyneuropathy, unspecified; Z79.899 Other long term (current) drug therapy
CPT/HCPCS: 87081